=== PATIENT | female | born 1995 | race Caucasian/White ===

== ENCOUNTER 2017-02-17 13:27 | Inpatient (IN) | payer MEDICAID, OTHER ==
--- NOTE | 2017-02-17 13:57 | ED ---
General Adult HPI - General Chief complaint: Psychiatric Symptoms Stated complaint: mental health/petition Time Seen by Provider: 02/17/17 13:47 Source: patient, family, RN notes reviewed Mode of arrival: ambulatory Limitations: no limitations - History of Present Illness Initial comments: Patient 21-year-old female who presents emergency room today with her mother, the chief complaint of needing psychiatric evaluation. Patient was seen at [facility] just prior to arrival advised to come here to the emergency room for evaluation for suicidal ideation. Patient denies any suicidal ideation. Denies any homicidal ideation. Denies any visual or auditory hallucinations. Patient states these instances can all be explained. She states she was walking his [facility] and she tripped falling down into a parking space. She states people SHE was trying to be run over. Patient states that yesterday she was laying down on the train tracks. She states that "you know some people take self please like that". Patient also states that she was thinking about jumping into the [place]. She states that "everybody in [place] jumps at least once". Mother states that she cannot swim. I did asked patient if she was thinking of doing these things to herself. She states she did have half a swimming lesson. Patient denies complaints. Patient denies any recent fever, chills, shortness of breath, chest pain, back pain, abdominal pain, nausea or vomiting, numbness or tingling, dysuria or hematuria, constipation or diarrhea, headaches or visual changes, or any other complaints. - Related Data Home Medications Medication Instructions Recorded Confirmed ALPRAZolam [Xanax] 1 mg PO BID 02/17/17 02/17/17 Desvenlafaxine Succinate [Pristiq 50 mg PO DAILY 02/17/17 02/17/17 ER] [place] Carbonate 900 mg PO HS 02/17/17 02/17/17 Lurasidone HCl [Latuda] 20 mg PO DAILY 02/17/17 02/17/17 clonazePAM [KlonoPIN] 2 mg PO TID 02/17/17 02/17/17 Allergies Allergy/AdvReac Type Severity Reaction Status Date / Time lamotrigine [From Lamictal] Allergy Unknown Verified 02/17/17 13:49 Review of Systems ROS Statement: Those systems with pertinent positive or pertinent negative responses have been documented in the HPI. ROS Other: All systems not noted in ROS Statement are negative. Past Medical History Additional Past Medical History / Comment(s): Aspbergers Syndrome; Psyhosis. History of Any Multi-Drug Resistant Organisms: None Reported Past Surgical History: No Surgical Hx Reported Past Anesthesia/Blood Transfusion Reactions: No Reported Reaction Past Psychological History: Anxiety, Depression Smoking Status: Never smoker Past Alcohol Use History: None Reported Additional Past Alcohol Use History / Comment(s): Patient states that she is a nonsmoker. She denies any medical marijuana, marijuana, street drug use. She denies any alcohol use. Patient lives at home with her periods and is currently going to [facility]. She does not have any children. Past Drug Use History: None Reported - Past Family History Father Family Medical History: Cancer, CVA/TIA, Myocardial Infarction ([place]) Additional Family Medical History / Comment(s): Father is age 58 and has unknown breast tumor Mother Family Medical History: Diabetes Mellitus Additional Family Medical History / Comment(s): Mother is alive at age 56. Patient has 2 sisters that are well by no and blind. She does not have any brothers. General Exam - General Exam Comments Initial Comments: General: The patient is awake and alert, in no distress, and does not appear acutely ill. Eye: Pupils are equal, round and reactive to light, extra-ocular movements are intact. No nystagmus. There is normal conjunctiva bilaterally. No signs of icterus. Ears, nose, mouth and throat: There are moist mucous membranes and no oral lesions. Neck: The neck is supple, there is no tenderness or JVD. Cardiovascular: There is a regular rate and rhythm. No murmur, rub or gallop is appreciated. Respiratory: Lungs are clear to auscultation, respirations are non-labored, breath sounds are equal. No wheezes, stridor, rales, or rhonchi. Musculoskeletal: Normal ROM, no tenderness. Strength 5/5. Sensation intact. Pulses equal bilaterally 2+. Neurological: A&O x 3. CN II-XII intact, There are no obvious motor or sensory deficits. Coordination appears grossly intact. Speech is normal. Skin: Skin is warm and dry and no rashes or lesions are noted. Psychiatric: Cooperative. Limitations: no limitations Course Vital Signs 02/17/17 13:34 Temperature 98.2 F Pulse Rate 112 H Respiratory 20 Rate Blood Pressure 136/89 O2 Sat by Pulse 98 Oximetry Medical Decision Making - Medical Decision Making Patient is visiting here by mental health. They recommended admission to the hospital. Patient willing to sign herself in. - Lab Data Lab Results 02/17/17 Range/Units 14:00 Urine Opiates Screen Not Detected (NotDetected) Ur Oxycodone Screen Not Detected (NotDetected) Urine Methadone Screen Not Detected (NotDetected) Ur Propoxyphene Screen Not Detected (NotDetected) Ur Barbiturates Screen Not Detected (NotDetected) U Tricyclic Antidepress Not Detected (NotDetected) Ur Phencyclidine Scrn Not Detected (NotDetected) Ur Amphetamines Screen Not Detected (NotDetected) U Methamphetamines Scrn Not Detected (NotDetected) U Benzodiazepines Scrn Detected H (NotDetected) Urine Cocaine Screen Not Detected (NotDetected) U Marijuana (THC) Screen Not Detected (NotDetected) Disposition Clinical Impression: Suicidal ideation Disposition: TRANSFER TO PSYCH HOSP/UNIT Condition: Stable Time of Disposition: 16:00
[2017-02-17] MEDS ORDERED: MAGNESIUM HYDROXIDE 2,400 MG/10 ML CUP PO PRN (17:18)
[2017-02-17] MEDS ORDERED: MAG HYDROX/AL HYDROX/SIMETH 30 ML CUP PO PRN (17:18)
[2017-02-17] MEDS ORDERED: ACETAMINOPHEN TAB 325 MG TAB PO PRN (17:18)
[2017-02-17 18:15] VITALS: BMI 40.3
[2017-02-17] MEDS ORDERED: LURASIDONE 40 MG TAB PO SCH (18:30)
[2017-02-17] MEDS: LITHIUM CARBONATE 300 MG CAP PO SCH (21:34)
[2017-02-17] MEDS: clonazePAM 1 MG TAB PO SCH (21:34)
--- NOTE | 2017-02-18 08:24 | CONS ---
DATE OF CONSULTATION: 02/17/2017 REASON FOR CONSULTATION: Medical management requested by Dr. Valentin. CONSULTATION: This is a 21-year-old patient who follows with Dr. Ary Martins. The patient states she has a questionable history of Asperger syndrome in the past and possibly history of psychosis and depression. Patient has come into the ER. Patient was seen at the [facility] prior to arrival to the ER and sent for suicidal ideation. She states that she was trying to get herself run over and that yesterday she was lying down on the train tracks. She was also thinking of sometimes of jumping in the [place]. She tells me that she hates herself and she is worthless and dealing with psych issues all of her life. REVIEW OF SYSTEMS: CONSTITUTIONAL: None. HEENT: None. RESPIRATORY: None. CARDIOVASCULAR: None. GASTROINTESTINAL: None. GENITOURINARY: None. MUSCULOSKELETAL: None. DERMATOLOGICAL: None. HEMATOLOGICAL: None. LYMPHATIC: None. PSYCHIATRY: Depressed, does not sleep well. NEUROLOGICAL: None. PAST MEDICAL HISTORY: Questionable Asperger and psychosis, depression is present. PAST SURGICAL HISTORY: None. SOCIAL HISTORY: Nonsmoker. Denies any recreational drugs. Goes to [employer]. 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 Family history of stroke and heart attack. HOME MEDICATIONS: 1. Klonopin 1 mg p.o. t.i.d. 2. Latuda 200 mg p.o. daily. 3. [place] 900 mg q.h.s. 4. Pristiq ER 50 mg p.o. daily. 5. Xanax 1 mg p.o. b.i.d. 6. Possibly imipramine. ALLERGIES: LAMICTAL. On examination, temperature 98.2, pulse 112, respirations 18, blood pressure 136/89, pulse of 88% on room air. GENERAL APPEARANCE: Well built, BMI of 40.4. Sitting up, not in distress. EYES: Pupils equal, conjunctival normal. HEENT: External appearance of nose and ears normal. Oral cavity normal. NECK: JVD not raised. Mass not palpable. RESPIRATORY: Effort normal. Lungs are clear. CARDIOVASCULAR: First and second sounds on normal. No edema. ABDOMEN: Soft, nontender. Liver and spleen not palpable. LYMPHATIC: No lymph node palpable in neck or axilla. PSYCHIATRY: Alert and oriented x3. Mood and affect as above. INVESTIGATIONS: Urine drug screen positive for benzodiazepines. IMPRESSION: 1. Morbid obesity, body mass index of 40.4. 2. Chronic insomnia, idiopathic. 3. Psychotic disorder. Further evaluation per Psychiatry. PLAN: Patient should see a dietitian as an outpatient for weight loss measures. Patient can go on 1800 calorie diet right now. Patient is to follow with Dr. Martins up on discharge. Thank you, Dr. Valentin.
[2017-02-18] MEDS: DESVENLAFAXINE SUCCINATE 50 MG TAB.ER.24H PO SCH (08:38)
[2017-02-18] MEDS: clonazePAM 1 MG TAB PO SCH ×3 (08:38→21:35)
[2017-02-18 09:07] LABS: Basophils # (A) 0.1 k/uL (0-0.2); Basophils % (A) 1 %; CH 32.5; CHCM 35.1; Eosinophils # (A) 0.5 k/uL (0-0.7); Eosinophils % (A) 4 %; HDW 2.93; HGB 15.4 gm/dL (11.4-16.0); Luc # (Auto) 0.23; Luc % (Auto) 2; Lymphocytes # (A) 4.3 k/uL (1.0-4.8); Lymphocytes % (A) 31 %; MCH 31.8 pg (25.0-35.0); MCHC 34.2 g/dL (31.0-37.0); Mean Platelet Volume 6.5; Monocytes # (A) 0.4 k/uL (0-1.0); Monocytes % (A) 3 %; Neutrophils # (A) 8.2 k/uL (1.3-7.7); Neutrophils % (A) 60 %; RBC 4.83 m/uL (3.80-5.40); RDW 12.9 % (11.5-15.5); WBC 13.8 k/uL (4.0-11.0); WBC (Perox) 14.11
[2017-02-18 09:26] LABS: ALT 91 U/L (9-52); AST 48 U/L (14-36); Alkaline Phosphatase 76 U/L (38-126); Anion Gap 17 mmol/L; Blood Urea Nitrogen 9 mg/dL (7-17); Calcium 9.9 mg/dL (8.4-10.2); Carbon Dioxide 20 mmol/L (22-30); Chloride 105 mmol/L (98-107); Glucose 164 mg/dL (74-99); Non-African American GFR(MDRD) >60 (>60 ml/min/1.73 sqM); Potassium 4.1 mmol/L (3.5-5.1); Sodium 142 mmol/L (137-145); Total Bilirubin 0.8 mg/dL (0.2-1.3); Total Protein 7.4 g/dL (6.3-8.2)
--- NOTE | 2017-02-18 16:14 | P.HP ---
Psychiatric H&P - . H&P Date: 02/18/17 History & Physical: Allergies Allergy/AdvReac Type Severity Reaction Status Date / Time lamotrigine [From Lamictal] Allergy Unknown Verified 02/17/17 18:15 Vital Signs Temp 98.0 F 02/18/17 06:49 Pulse 100 02/18/17 06:49 Resp 18 02/18/17 06:49 BP 120/66 02/18/17 06:49 Pulse Ox 98 02/17/17 13:34 Intake & Output 02/17/17 02/18/17 02/18/17 18:59 06:59 18:59 Weight 113.398 kg Laboratory Last Values WBC 13.8 k/uL (4.0-11.0) H 02/18/17 08:45 RBC 4.83 m/uL (3.80-5.40) 02/18/17 08:45 Hgb 15.4 gm/dL (11.4-16.0) 02/18/17 08:45 Hct 45.0 % (34.0-46.0) 02/18/17 08:45 MCV 93.0 fL (80.0-100.0) 02/18/17 08:45 MCH 31.8 pg (25.0-35.0) 02/18/17 08:45 MCHC 34.2 g/dL (31.0-37.0) 02/18/17 08:45 RDW 12.9 % (11.5-15.5) 02/18/17 08:45 Plt Count 366 k/uL (150-450) 02/18/17 08:45 Neutrophils % 60 % 02/18/17 08:45 Lymphocytes % 31 % 02/18/17 08:45 Monocytes % 3 % 02/18/17 08:45 Eosinophils % 4 % 02/18/17 08:45 Basophils % 1 % 02/18/17 08:45 Neutrophils # 8.2 k/uL (1.3-7.7) H 02/18/17 08:45 Lymphocytes # 4.3 k/uL (1.0-4.8) 02/18/17 08:45 Monocytes # 0.4 k/uL (0-1.0) 02/18/17 08:45 Eosinophils # 0.5 k/uL (0-0.7) 02/18/17 08:45 Basophils # 0.1 k/uL (0-0.2) 02/18/17 08:45 Sodium 142 mmol/L (137-145) 02/18/17 08:45 Potassium 4.1 mmol/L (3.5-5.1) 02/18/17 08:45 Chloride 105 mmol/L (98-107) 02/18/17 08:45 Carbon Dioxide 20 mmol/L (22-30) L 02/18/17 08:45 Anion Gap 17 mmol/L 02/18/17 08:45 BUN 9 mg/dL (7-17) 02/18/17 08:45 Creatinine 0.81 mg/dL (0.52-1.04) 02/18/17 08:45 Est GFR (MDRD) Af Amer >60 (>60 ml/min/1.73 sqM) 02/18/17 08:45 Est GFR (MDRD) Non-Af >60 (>60 ml/min/1.73 sqM) 02/18/17 08:45 Glucose 164 mg/dL (74-99) H 02/18/17 08:45 Calcium 9.9 mg/dL (8.4-10.2) 02/18/17 08:45 Total Bilirubin 0.8 mg/dL (0.2-1.3) 02/18/17 08:45 AST 48 U/L (14-36) H 02/18/17 08:45 ALT 91 U/L (9-52) H 02/18/17 08:45 Alkaline Phosphatase 76 U/L (38-126) 02/18/17 08:45 Total Protein 7.4 g/dL (6.3-8.2) 02/18/17 08:45 Albumin 4.6 g/dL (3.5-5.0) 02/18/17 08:45 TSH 3.350 mIU/L (0.465-4.680) 02/18/17 08:45 Urine Opiates Screen Not Detected (NotDetected) 02/17/17 14:00 Ur Oxycodone Screen Not Detected (NotDetected) 02/17/17 14:00 Urine Methadone Screen Not Detected (NotDetected) 02/17/17 14:00 Ur Propoxyphene Screen Not Detected (NotDetected) 02/17/17 14:00 Ur Barbiturates Screen Not Detected (NotDetected) 02/17/17 14:00 U Tricyclic Antidepress Not Detected (NotDetected) 02/17/17 14:00 Ur Phencyclidine Scrn Not Detected (NotDetected) 02/17/17 14:00 Ur Amphetamines Screen Not Detected (NotDetected) 02/17/17 14:00 U Methamphetamines Scrn Not Detected (NotDetected) 02/17/17 14:00 U Benzodiazepines Scrn Detected (NotDetected) H 02/17/17 14:00 [place] 0.6 mmol/L 02/17/17 18:02 Urine Cocaine Screen Not Detected (NotDetected) 02/17/17 14:00 U Marijuana (THC) Screen Not Detected (NotDetected) 02/17/17 14:00 02/18/17 15:55 IDENTIFYING DATA: 21-year-old single female patient HPI: Patient admitted to the inpatient psychiatric unit at [facility] on a voluntary basis. Patient states that she had recent med changes and they put her on something at a higher dose that the last time she was on she had to be tied to her mom's ankle because she was suicidal. She makes reference to the Klonopin 1 mg 3 times a day she's been on for 2 weeks and Latuda is new she's been on for approximately 2 weeks. She relays that she had been on Klonopin in the past and was suicidal at that time but does not know if there is any correlation and relays that the Latuda is new for her. states that she was also been off her antidepressant as well and was trying to throw herself in the river the night before yesterday. She says she went to [facility] the next day and she got extremely anxious and sat in the parking lot. She says that they recommended admission and she was still having thoughts of suicide at that time. She states that if she was going to kill herself sitting in the parking lot probably wouldn't do it and if she wanted to she could gone on into the road. She does admit to being a worrier. She says she does feel she would be safe if she were released. She does make reference to them looking at ECT treatment for her. She states that she was weaned off her Pristiq but now has been placed back on it. She states that she also suffers from symptoms such as can't be around a electric wheelchair repairer because there might be a camera and it and covering up the vents. She says she has an overwhelming feeling of being watched all the time. She says this does not affect her way of life. She states that the medications she was on before were fine. She makes reference to the feeling that she hates herself. PAST PSYCHIATRIC HISTORY: She currently sees a counselor sharing at [facility] and nurse practitioner Christina. She denies any history of manic episodes. She does admit to history of depressive episodes. She does go to DBT groups. Her diagnosis has been bipolar depression she also talks of major depressive disorder with psychosis. She is also been diagnosed with Asperger's, OCD, ODD, and ADHD. She's had 2 prior hospitalizations. She has had suicide attempts one was an overdose. Says she's never had an issue with cutting behavior. Most recent medications were Klonopin, Latuda, she had been tapered off her Pristiq which has now been reinitiated, lithium carbonate and Xanax when necessary. PMH: Denies ALLERGIES: Lamotrigine MEDICATIONS: Tylenol when necessary, Maalox when necessary, Klonopin, Pristiq, lithium carbonate, Latuda, milk of magnesia when necessary CHEMICAL DEPENDENCY HISTORY: Denies FAMILY PSYCHIATRIC HISTORY: Grandma with paranoid schizophrenia," paranoid schizophrenia, multiple other family members with hospitalizations, dad with depression and was hospitalized, older sister with anxiety disorder FAMILY CHEMICAL DEPENDENCY HISTORY: Not known at this time SOCIAL HISTORY: Lives with her mom and dad and 2 sisters. She is single, never been , no children. She is a full-time student. She goes to [employer] and says her grades are not doing too well. MENTAL STATUS EXAM: She is alert and cooperative with the interview. She uses humor at times during the session. Her affect overall is restricted. Her mood is described as "sad." She denies any current thoughts of harm to self or others. She does describe some thoughts such as overwhelming feeling of being watched all the time. Cognitively she appears very grossly intact. I do not note any significant disorientation or memory disturbance. Her insight is adequate, judgment shows evidence of recent impairment. STRENGTHS/WEAKNESSES: Strengths-Support system; weaknesses -coping skills INTELLECTUAL FUNCTIONING: Average IMPRESSIONS: AXIS I : Major depressive disorder, recurrent with history of psychosis-type symptoms; rule out bipolar disorder depressed with psychosis; rule out schizoaffective disorder, depressive versus bipolar type. History of diagnoses of Asperger's, OCD, ODD and ADHD. AXIS II: Deferred AXIS III: Nonsignificant AXIS IV: Nonsignificant voiced AXIS V: 30 PLAN: [facility] on a voluntary basis. She'll be placed on SP 15 minute precautions. Baseline laboratory workup will be done the patient and medical consultation will be ordered. [place] level was noted to be 0.6. We will maintain lithium as is at this time. We'll titrate Latuda to 40 mg daily to help further with him mood as well as any paranoid thoughts and could also give further benefit regarding any OCD symptoms. We will maintain Pristiq which has been reinitiated as her antidepressant 50 mg daily. Klonopin will be maintained for her anxiety as current. Dr. Valentin will initiate care this patient starting Monday, will continue to cover this patient over the weekend. We will look into any family supports. Also look at the possibility of linking with Center such as [facility] if ECT treatment is being pursued. Estimated length of stay is 3-5 days. Prognosis is guarded.
[2017-02-18] MEDS: LITHIUM CARBONATE 300 MG CAP PO SCH (21:35)
[2017-02-19] MEDS: DESVENLAFAXINE SUCCINATE 50 MG TAB.ER.24H PO SCH (08:31)
[2017-02-19] MEDS: LURASIDONE 40 MG TAB PO SCH (08:31)
[2017-02-19] MEDS: clonazePAM 1 MG TAB PO SCH ×2 (08:31→16:04)
--- NOTE | 2017-02-19 17:07 | P.PN ---
Progress Note - Text Interval history: Patient seen in cross coverage today in for Dr. Valentin. She reports that her mood is doing better overall today. She does feel tiredness but feels like she is tolerating the psychotropic medications well overall. She relays that she hasn't been having panic attacks which is typical for her to have multiple per day. She is having a visit with her family tonight. Mental status exam: She is alert and cooperative with the interview. Her speech is fluent not rapid or pressured. Thought processes organized. Her mood overall appears to be better. She denies any thoughts of harm to self or others. No evidence of psychosis or agitation. Plan: We'll maintain current psychotropic medication regimen. We'll monitor for any medication side effects. Dr. Valentin to initiate care this patient starting tomorrow. We will look into family support meeting.
[2017-02-19] MEDS: LITHIUM CARBONATE 300 MG CAP PO SCH (20:23)
[2017-02-20] MEDS: clonazePAM 1 MG TAB PO SCH ×4 (02:52→20:21)
[2017-02-20] MEDS: DESVENLAFAXINE SUCCINATE 50 MG TAB.ER.24H PO SCH (09:31)
[2017-02-20] MEDS: LURASIDONE 40 MG TAB PO SCH (09:31)
--- NOTE | 2017-02-20 14:40 | P.PN ---
Progress Note - Text SUBJECTIVE: I reviewed the medical record, interviewed Ms. Toledo and discussed her treatment and treatment plan during team meeting. She presented to unit with increasing suicidal ideation. According to information from [facility] she has history of recurrent depressive disorder and a borderline personality disorder. She alleged that she became distressed and developed thoughts of suicide after outpatient psychiatrist tapered then discontinue her antidepressant. Since she restarted the medication, Pristiq, she feels less distressed and is no longer having thoughts of suicide. She feels depressed but denied thoughts of or suicide. She denied having thoughts of harm towards others. She denied psychotic symptoms such as auditory or visual hallucinations, ideas reference, thought insertion, thought broadcasting or thought control. She denied the use of alcohol or drugs (her UDS was positive only for benzodiazepine). She alleges been compliant with all medications. Her serum lithium level was 0.6. OBJECTIVE: She presented as a slightly disheveled appearing obese 21-year-old female who was pleasant on approach. She maintained eye contact and attended to the interview. She had no distinguishing features or prominent physical abnormalities. She had a blunted but bright facial expression. She was alert and oriented to person, place and time. She showed no abnormality of psychomotor activity. She had no abnormal involuntary movements. Her speech was spontaneous with normal rate, rhythm and volume. Affect was blunted but stable and appropriate. She denied suicidal ideation or wishes. She denied homicidal ideation. She denied depressive cognitions such as hopelessness, helplessness or worthlessness. She has not expressed obsessions, ruminations, phobias, ideas reference or paranoid ideation. Her thinking was abstract and her associations were coherent and logical. She denied hallucinations and did not appear to be responding to internal stimuli. ASSESSMENT: She is a young woman with a recurrent depressive disorder and borderline personality disorder. She presented with suicidal ideation that has apparently resolved since admission. Her subjective report of depression is not consistent with her clinical presentation. PLAN: Continue inpatient psychiatric hospitalization. Continue suicide precautions with 15 minute checks. Continue current medications: Clonazepam 1 mg 3 times a day, Pristiq ER 50 mg daily, lithium carbonate 900 mg at bedtime and Latuda 400 mg daily. Obtain collateral information from family. Encourage participation in therapeutic groups and activities. Evaluate clinical status response to treatment on a daily basis.
[2017-02-20 16:14] VITALS: RESP 18
[2017-02-20] MEDS: LITHIUM CARBONATE 300 MG CAP PO SCH (20:20)
[2017-02-21 06:30] VITALS: BP 142/65; PULSE 92; TEMP 98.3
[2017-02-21] MEDS: clonazePAM 1 MG TAB PO SCH (08:15)
[2017-02-21] MEDS: DESVENLAFAXINE SUCCINATE 50 MG TAB.ER.24H PO SCH (08:15)
[2017-02-21] MEDS: LURASIDONE 40 MG TAB PO SCH (08:15)
--- NOTE | 2017-02-21 09:22 | P.DS ---
Providers Date of admission: 02/17/17 16:02 Attending physician: Lalo Valentin MD Consults: 02/17/17 17:18 Consult Physician Routine Consulting Provider: Clyde Chappell Consult Reason/Comments: H and P and medical management. Do you want consulting provider notified?: Yes Primary care physician: Ary Martins - Discharge Diagnosis(es) (1) Major depressive disorder, recurrent Current Visit: Yes Status: Chronic Priority: Medium (2) Borderline personality disorder Current Visit: Yes Status: Chronic Priority: High (3) Suicidal ideation Current Visit: Yes Status: Resolved Priority: Medium Hospital Course: Miss Rodriguez is a 21-year-old single female admitted voluntarily to the psychiatric unit with complaints of increased anxiety and suicidal ideation. She has a history of a major depressive disorder and a borderline personality disorder. She is enrolled with [facility] and attends their DBT groups. She attributed to increased anxiety changes in behavior to a recent medication change. Please see Dr. Cooley's history and physical dated 02/18/2017. We admitted her to the psychiatric unit under the care of this teletypewriter installer. We provided a bile psychosocial assessment. The customer service sales consultant plant operator completed the initial physical exam and medical history diagnosis morbid obesity (BMI of 40.4) and chronic insomnia. Her UDS was positive for benzodiazepines only. Her serum lithium level was 0.6. We resumed her outpatient medications including clonazepam 1 mg 3 times a day, Pristiq ER 50 mg daily and lithium carbonate 900 mg at bedtime. We increased her Latuda from 20 mg to 40 mg daily for the treatment of depression and emotional dyscontrol. Her emotional lability, anxiety and depression diminished after admission. She repeatedly denied suicidal intent or plan. She attributed the change of her emotions and behavior to the recent indication change. She participated in therapeutic groups and activities. She posed no management problem from an demonstrated no behavioral dyscontrol. The executive secretary social welfare had frequent contact with her mother. Her brother also reported a marked change in behavior and a decrease in emotional lability. At time of discharge denied thoughts of or suicide. She plans to continue with treatment through community mental health including attendance to DBT groups. Patient Condition at Discharge: Stable Plan - Discharge Summary New Discharge Prescriptions: Lurasidone [Latuda] 40 mg PO W/BRKFST 30 Days Discharge Medication List Desvenlafaxine Succinate [Pristiq ER] 50 mg PO DAILY 02/17/17 [History] [place] Carbonate 900 mg PO HS 02/17/17 [History] clonazePAM [KlonoPIN] 1 mg PO TID 02/17/17 [History] Lurasidone [Latuda] 40 mg PO W/BRKFST 30 Days 02/21/17 [Rx] Follow up Appointment(s)/Referral(s): [facility] [Outside] - 02/21/17 3:15 pm (02/21/17 at 3:15 w/ Nivia Hamilton 02/22/17 at 10:30 w/ Christina Kennedy) Ary Martins DO [Primary Care Provider] - 1-2 days (Inquire about referral for sleep study) Patient Instructions/Handouts: Depression (DC), Suicide Prevention for Adults ( DC), Anxiety (GEN) Activity/Diet/Wound Care/Special Instructions: Activity and diet as tolerated. Avoid the use of street drugs and alcohol. Take all medications as prescribed. When you are in need of refills on your medications please contact your medical doctor and/or outpatient psychiatrist to have this done. Please go to scheduled outpatient appointment for aftercare. If symptoms return or become worse call the crisis line at and/ or go to the nearest emergency room for an evaluation. Discharge Disposition: HOME SELF-CARE
== END 2017-02-21 11:49 | disposition home or self-care (01) | DRG 885 ==
LOC: EC 13:27 → 3MHU 16:02
PROVIDERS: ADMIT Psychiatry & Neurology Psychiatry; ATTEND Psychiatry & Neurology Psychiatry
DX: F33.9 Major depressive disorder, recurrent, unspecified (principal); R45.851 Suicidal ideations; Z68.41 Body mass index [BMI] 40.0-44.9, adult; E66.01 Morbid (severe) obesity due to excess calories; F41.9 Anxiety disorder, unspecified; F42.9 Obsessive-compulsive disorder, unspecified; F51.04 Psychophysiologic insomnia; F60.3 Borderline personality disorder; F84.5 Asperger's syndrome; F90.9 Attention-deficit hyperactivity disorder, unspecified type; Z81.8 Family history of other mental and behavioral disorders; Z82.49 Family history of ischemic heart disease and other diseases of the circulatory system; Z79.899 Other long term (current) drug therapy
CPT/HCPCS: 80053; 80178; 80306; 82075; 84443; 85025; 99285

== ENCOUNTER → 2017-05-23 | Outpatient (CLI) | payer OTHER ==
--- NOTE | 2017-05-23 21:44 | CONS ---
DATE OF SERVICE: 05/23/2017 REASON FOR EVALUATION: Sleep apnea. This 22-year-old female patient has excessively been sleepy. She is sleeping all day, and despite that she remains quite drowsy and sleepy during awake hours. She goes to bed between 2 and 3 a.m. and she wake up sometimes at 9 a.m. , and sometimes she sleeps up to noon time. Despite all these sleeping hours, she is very drowsy and sleepy during the day. Note that she has an extensive psychiatric history with a previous history of severe depression, bipolar disorder and anxiety. She has been under the care of Dr. Fagan and she has been hospitalized for major depression. Currently she is on a combination of lithium , Pristiq and Klonopin. Based on her ongoing sleepiness, she was started on Ritalin 20 mg p.o. twice a day, and despite that she is still feeling sleepy. She saw some benefit from the Ritalin; however, the benefit was not great. Her mother feels that she snores loudly, she stops breathing, she is waking up occasionally choking and gasping for air. She wakes up with a dry mouth. She talks in her sleep. She is quite anxious, as mentioned, and she has a history of severe depression. She is tired and sleepy throughout the day and she falls asleep at any time if she is given the opportunity to do so. No history of any motor vehicle accidents because of feeling sleepy or drowsy. No sleep paralysis. No hallucinations. No cataplexy. The patient has been gaining weight ; she has gained around ( ) pounds over the past one year. She takes at least 2 naps during the day. She prefers primarily to sleep on her side. PAST MEDICAL HISTORY: 1. Major depression. 2. Anxiety/bipolar disorder. 3. Obesity. PAST SURGICAL HISTORY: Negative. DRUG ALLERGIES: NOT KNOWN. Outpatient medication list includes: 1. [place]. 2. Pristiq. 3. Klonopin. 4. Ritalin. 5. Xanax. SOCIAL HISTORY: The patient is a non-smoker. No history of alcoholism. No history of IV drugs. No substance abuse. FAMILY HISTORY: Her father has obstructive sleep apnea. Her other siblings are albino. REVIEW OF SYSTEMS: Twelve-point review of systems was done. Positive findings were all mentioned above in the history of present illness. No history of any grinding of the teeth. No palpitations. No heartburn. No history of any insomnia. No difficulties with memory. No restlessness in the lower extremities. BP is 114/72, pulse 88, respiration 12, temperature 97.7. Saturation 97% on room air. Weight is 283. Height is 66 inches. Neck size 18-1/2. [place] score is 18. BMI is 44.9. GENERAL APPEARANCE: Calm, comfortable. HEENT: Short neck. Crowding of posterior pharynx. Mallampati class IV. Bilateral tonsillar enlargement. LUNGS: Clear to auscultation. Heart sounds are regular rate and rhythm. Normal S1, S2. No S3. No S4. No murmurs. ABDOMEN: Soft, non-tender. No organomegaly. EXTREMITIES: No edema. No cyanosis or clubbing. IMPRESSION: 1. Obstructive sleep apnea clinically suspected; in fact, there is a high suspicion for BETTY based on the reported history of snoring, witnessed apneas and excessive hypersomnia and sleepiness with an [place] score of 18. In addition, the patient has a Mallampati class IV. 2. Obesity; body mass index of 44.9. 3. Major depression. 4. Anxiety. 5. Bipolar disorder. PLAN: 1. Encourage weight loss. 2. Continue the same medication. 3. Continue Ritalin. 4. Proceed with a screening polysomnogram to assess the presence of obstructive sleep apnea and treat accordingly. VIKTORIA
== END | disposition home or self-care (01) ==
LOC: SLEEP 15:02
PROVIDERS: ATTEND Internal Medicine Critical Care Medicine
DX: F32.9 Major depressive disorder, single episode, unspecified (principal); E66.9 Obesity, unspecified; F41.9 Anxiety disorder, unspecified
CPT/HCPCS: 99211

== ENCOUNTER 2017-07-16 18:28 | Emergency (ER) | payer OTHER ==
[2017-07-16 18:36] VITALS: RESP 18
--- NOTE | 2017-07-16 19:07 | ED ---
Psych HPI - General Chief Complaint: Psychiatric Symptoms Stated Complaint: mental health Time Seen by Provider: 07/16/17 18:42 Source: patient, family, RN notes reviewed Mode of arrival: ambulatory Limitations: no limitations - History of Present Illness Initial Comments: This a 22-year-old female presents emergency Department with chief complaint of depression. Patient states that earlier today she made threats [place] him to kill herself. She states that she was angry and argumentative. Patient states that she is much better at this time states that she does not feel that she wants to harm herself. She denies suicidal or homicidal ideation. Patient states that she has extensive outpatient therapy but patient left house so mother called the police as she told her that she would. They did advise her to come emergency department for evaluation. - Related Data Home Medications Medication Instructions Recorded Confirmed Desvenlafaxine Succinate [Pristiq 50 mg PO HS 02/17/17 07/16/17 ER] [place] Carbonate 900 mg PO HS 02/17/17 07/16/17 ALPRAZolam [Xanax] 1 mg PO DAILY PRN 07/16/17 07/16/17 Lurasidone [Latuda] 80 mg PO DAILY 07/16/17 07/16/17 Methylphenidate HCl [Ritalin] 5 mg PO DAILY PRN 07/16/17 07/16/17 clonazePAM [KlonoPIN] 1 mg PO DAILY 07/16/17 07/16/17 clonazePAM [KlonoPIN] 2 mg PO HS 07/16/17 07/16/17 Allergies Allergy/AdvReac Type Severity Reaction Status Date / Time lamotrigine [From Lamictal] Allergy Unknown Verified 07/16/17 19:08 Review of Systems ROS Statement: Those systems with pertinent positive or pertinent negative responses have been documented in the HPI. ROS Other: All systems not noted in ROS Statement are negative. Past Medical History Past Medical History: No Reported History Additional Past Medical History / Comment(s): Asbergers Syndrome; sleep apnea History of Any Multi-Drug Resistant Organisms: None Reported Past Surgical History: No Surgical Hx Reported Past Anesthesia/Blood Transfusion Reactions: No Reported Reaction Past Psychological History: ADD/ADHD, Anxiety, Bipolar, Depression Smoking Status: Never smoker Past Alcohol Use History: None Reported Past Drug Use History: None Reported - Past Family History Father Family Medical History: Cancer, CVA/TIA, Myocardial Infarction ([place]) Additional Family Medical History / Comment(s): Father is age 58 and has unknown breast tumor Mother Family Medical History: Diabetes Mellitus Additional Family Medical History / Comment(s): Mother is alive at age 56. Patient has 2 sisters that are well by no and blind. She does not have any brothers. General Exam Limitations: no limitations General appearance: alert, in no apparent distress Head exam: Present: atraumatic, normocephalic, normal inspection Eye exam: Present: normal appearance, PERRL, EOMI. Absent: scleral icterus, conjunctival injection, periorbital swelling ENT exam: Present: normal exam, normal oropharynx, mucous membranes moist, TM's normal bilaterally, normal external ear exam Neck exam: Present: normal inspection, full ROM. Absent: tenderness, meningismus, lymphadenopathy Respiratory exam: Present: normal lung sounds bilaterally. Absent: respiratory distress, wheezes, rales, rhonchi, stridor Cardiovascular Exam: Present: regular rate, normal rhythm, normal heart sounds. Absent: systolic murmur, diastolic murmur, rubs, gallop, clicks Neurological exam: Present: alert, oriented X3, CN II-XII intact Psychiatric exam: Present: depressed Skin exam: Present: warm, dry, intact, normal color. Absent: rash Course Vital Signs 07/16/17 18:29 Temperature 98.1 F Pulse Rate 106 H Respiratory 18 Rate Blood Pressure 113/77 O2 Sat by Pulse 94 L Oximetry Medical Decision Making - Medical Decision Making 22-year-old female presented for psychiatric evaluation depression. Patient was evaluated by [facility] and recommends discharge after discussion with psychiatrist. Patient has extensive outpatient therapy. Patient is not suicidal. Disposition Clinical Impression: Depression Disposition: HOME SELF-CARE Condition: Stable Instructions: Depression (ED) Additional Instructions: Please return to the Emergency Department if symptoms worsen or any other concerns. Referrals: Ary Martins DO [Primary Care Provider] - 1-2 days Time of Disposition: 21:05
[2017-07-16 21:34] VITALS: BP 117/76; PULSE 98; TEMP 98
== END 2017-07-16 21:32 | disposition home or self-care (01) ==
LOC: EC 18:28
DX: F32.9 Major depressive disorder, single episode, unspecified (principal); R45.4 Irritability and anger; F31.9 Bipolar disorder, unspecified; F41.9 Anxiety disorder, unspecified; F90.9 Attention-deficit hyperactivity disorder, unspecified type; Z79.899 Other long term (current) drug therapy; Z88.8 Allergy status to other drugs, medicaments and biological substances
CPT/HCPCS: 82075; 99284

== ENCOUNTER 2019-06-03 20:16 | Emergency (ER) | payer OTHER ==
[2019-06-03] MEDS ORDERED: DICYCLOMINE 20 MG TAB PO STA (22:30)
[2019-06-03] MEDS ORDERED: MORPHINE SULFATE 4 MG/ML SYRINGE IVP STA (22:31)
[2019-06-03 23:01] LABS: HCT 42.7 % (34.0-46.0); HGB 14.4 gm/dL (11.4-16.0); MCH 30.7 pg (25.0-35.0); MCHC 33.7 g/dL (31.0-37.0); Mean Platelet Volume 6.4; Platelet Count 368 k/uL (150-450); RBC 4.69 m/uL (3.80-5.40); RDW 12.8 % (11.5-15.5); WBC 11.8 k/uL (3.8-10.6)
[2019-06-03 23:16] LABS: ALT 38 U/L (9-52); AST 41 U/L (14-36); African American GFR (CKD) >90 (>60 ml/min/1.73 sqM); Albumin 4.3 g/dL (3.5-5.0); Alkaline Phosphatase 51 U/L (38-126); Anion Gap 8 mmol/L; Blood Urea Nitrogen 6 mg/dL (7-17); Calcium 9.5 mg/dL (8.4-10.2); Carbon Dioxide 24 mmol/L (22-30); Chloride 108 mmol/L (98-107); Glucose 76 mg/dL (74-99); Lithium 1.4 mmol/L; Potassium 4.3 mmol/L (3.5-5.1); Sodium 140 mmol/L (137-145); Total Bilirubin 0.3 mg/dL (0.2-1.3); Total Protein 6.7 g/dL (6.3-8.2)
--- NOTE | 2019-06-03 23:21 | XR ---
EXAM: XR Abdomen, 1 View CLINICAL HISTORY: Pain TECHNIQUE: Frontal supine view of the abdomen/pelvis. COMPARISON: No relevant prior studies available. FINDINGS: Intraperitoneal space: No pneumatosis or pneumoperitoneum. Gastrointestinal tract: Gas and stool are seen in the nondilated colon. Paucity of bowel gas in the central abdomen. Bones/joints: No acute fracture or malalignment. IMPRESSION: 1. Gas and stool are seen in the nondilated colon. 2. No pneumatosis or pneumoperitoneum.
[2019-06-03 23:28] LABS: Appearance,Urine Clear (Clear); Bacteria,Urine Rare /hpf; Bilirubin,Urine Negative (Negative); Blood,Urine Negative (Negative); Color,Urine Yellow; Glucose,Urine (UA) Negative (Negative); Ketones,Urine Trace (Negative); Leukocyte Esterase,Urine Small (Negative); Mucus,Urine Rare /hpf; Nitrite,Urine Negative (Negative); Protein,Urine Trace (Negative); RBC,Urine 1 /hpf (0-5); Specific Gravity,Urine 1.021 (1.001-1.035); Squamous Epithelial Cell,Urine 6 /hpf (0-4); WBC,Urine 5 /hpf (0-5)
--- NOTE | 2019-06-03 23:53 | ED ---
Female Urogenital HPI - General Chief complaint: Urogenital Stated complaint: Abd Pain, Urogenital Time Seen by Provider: 06/03/19 21:46 Source: family Mode of arrival: ambulatory Limitations: no limitations - History of Present Illness Initial comments: Issues 24-year-old female presenting to emergency Department with abdominal pain. Patient reports a history of abdominal uterine bleeding and dysmenorrhea that is currently being treated by lens edge grinder machine with oral contraceptives. Patient is being evaluated by her lens edge grinder machine for endometriosis. Patient had an ultrasound recently and is waiting for a follow-up tomorrow morning with her lens edge grinder machine. Patient reports irregular periods and is typical bleeding twice a month. Patient reports the abdominal pain is located on the left and right suprapubic region. Patient reports the pain is cramping in character, and comes and goes. Patient reports the pain is very similar to her previous bouts with dysmenorrhea but this time she could not handle the pain. Patient denies nausea, vomiting or diarrhea. Patient denies fever, chest pain, chest tightness, shortness of breath or headache. Patient is not sexually active and has no concerns for STDs. Patient denies increased urgency, frequency or dysuria. Patient denies any vaginal discharge or foul odor. Patient takes lithium and her mother was requesting to have her levels checked. - Related Data Home Medications Medication Instructions Recorded Confirmed [place] Carbonate 300 mg PO HS 02/17/17 06/03/19 [place] 1 tab PO DAILY 06/03/19 06/03/19 [place] Carbonate 1,200 mg PO HS 06/03/19 06/03/19 QUEtiapine [SEROquel] 25 mg PO HS 06/03/19 06/03/19 Venlafaxine HCl [Effexor XR] 300 mg PO DAILY 06/03/19 06/03/19 hydrOXYzine PAMOATE 25 mg PO BID PRN 06/03/19 06/03/19 Previous Rx's Medication Instructions Recorded Dicyclomine [Bentyl] 10 mg PO TID #20 capsule 06/03/19 Allergies Allergy/AdvReac Type Severity Reaction Status Date / Time lamotrigine [From Lamictal] Allergy Unknown Verified 06/03/19 21:41 Review of Systems ROS Statement: Those systems with pertinent positive or pertinent negative responses have been documented in the HPI. ROS Other: All systems not noted in ROS Statement are negative. Past Medical History Past Medical History: No Reported History Additional Past Medical History / Comment(s): Asbergers Syndrome; sleep apnea History of Any Multi-Drug Resistant Organisms: None Reported Past Surgical History: No Surgical Hx Reported Past Anesthesia/Blood Transfusion Reactions: No Reported Reaction Past Psychological History: ADD/ADHD, Anxiety, Depression, PTSD Smoking Status: Never smoker Past Alcohol Use History: None Reported Past Drug Use History: None Reported - Past Family History Father Family Medical History: Cancer, CVA/TIA, Myocardial Infarction ([place]) Additional Family Medical History / Comment(s): Father is age 58 and has unknown breast tumor Mother Family Medical History: Diabetes Mellitus Additional Family Medical History / Comment(s): Mother is alive at age 56. Patient has 2 sisters that are well by no and blind. She does not have any brothers. General Exam Limitations: no limitations General appearance: alert, in no apparent distress, obese Head exam: Present: atraumatic, normocephalic, normal inspection Eye exam: Present: normal appearance, PERRL, EOMI Pupils: Present: normal accommodation ENT exam: Present: normal exam, mucous membranes moist, normal external ear exam Neck exam: Present: normal inspection, full ROM Respiratory exam: Present: normal lung sounds bilaterally. Absent: wheezes Cardiovascular Exam: Present: regular rate, normal rhythm, normal heart sounds GI/Abdominal exam: Present: soft, normal bowel sounds, other (Negative Moncada sign, negative McBurney point tenderness, negative bench shear operator sign, negative rebound tenderness, negative Rovsing.). Absent: tenderness, guarding, rebound Extremities exam: Present: normal inspection, full ROM Back exam: Present: normal inspection, full ROM. Absent: tenderness, CVA tenderness (R), CVA tenderness (L) Neurological exam: Present: alert, oriented X3 Psychiatric exam: Present: normal affect, normal mood Skin exam: Present: warm, intact, normal color Course Vital Signs 06/03/19 06/04/19 20:33 00:10 Temperature 98.5 F 97.8 F Pulse Rate 105 H 87 Respiratory 20 18 Rate Blood Pressure 112/78 118/83 O2 Sat by Pulse 95 99 Oximetry Medical Decision Making - Medical Decision Making Patient is a 24-year-old female presenting to emergency Department with abdominal pain. CBC indicates a mild elevation in white blood cells otherwise unremarkable. CMP is unremarkable. UA is negative for UTI. KUB is unremarkable. Patient was given fluids, and Bentyl. Patient was offered morphine but she declined. A reevaluation patient reports her abdominal pain is less than a 5. Patient declined a pelvic exam and states that she will seek further management from her lens edge grinder machine in the morning. Patient will be discharged with Bentyl. Patient advised to attend her appointment in the morning. Strict return parameters were thoroughly discussed with patient and mother who are understanding and agreeable. Case discussed with physician. - Lab Data Result diagrams: 06/03/19 22:50 06/03/19 22:50 Lab Results 06/03/19 06/03/19 06/03/19 Range/Units 22:50 22:50 22:50 WBC 11.8 H (3.8-10.6) k/uL RBC 4.69 (3.80-5.40) m/uL Hgb 14.4 (11.4-16.0) gm/dL Hct 42.7 (34.0-46.0) % MCV 91.0 (80.0-100.0) fL MCH 30.7 (25.0-35.0) pg MCHC 33.7 (31.0-37.0) g/dL RDW 12.8 (11.5-15.5) % Plt Count 368 (150-450) k/uL Sodium 140 (137-145) mmol/L Potassium 4.3 (3.5-5.1) mmol/L Chloride 108 H (98-107) mmol/L Carbon Dioxide 24 (22-30) mmol/L Anion Gap 8 mmol/L BUN 6 L (7-17) mg/dL Creatinine 0.73 (0.52-1.04) mg/dL Est GFR (CKD-EPI)AfAm >90 (>60 ml/min/1.73 sqM) Est GFR (CKD-EPI)NonAf >90 (>60 ml/min/1.73 sqM) Glucose 76 (74-99) mg/dL Calcium 9.5 (8.4-10.2) mg/dL Total Bilirubin 0.3 (0.2-1.3) mg/dL AST 41 H (14-36) U/L ALT 38 (9-52) U/L Alkaline Phosphatase 51 (38-126) U/L Total Protein 6.7 (6.3-8.2) g/dL Albumin 4.3 (3.5-5.0) g/dL Urine Color Yellow Urine Appearance Clear (Clear) Urine pH 7.0 (5.0-8.0) Ur Specific [place] 1.021 (1.001-1.035) Urine Protein Trace H (Negative) Urine Glucose (UA) Negative (Negative) Urine Ketones Trace H (Negative) Urine Blood Negative (Negative) Urine Nitrite Negative (Negative) Urine Bilirubin Negative (Negative) Urine Urobilinogen 4.0 (<2.0) mg/dL Ur Leukocyte Esterase Small H (Negative) Urine RBC 1 (0-5) /hpf Urine WBC 5 (0-5) /hpf Ur Squamous Epith Cells 6 H (0-4) /hpf Urine Bacteria Rare H (None) /hpf Urine Mucus Rare H (None) /hpf [place] 1.4 mmol/L Disposition Clinical Impression: Abdominal pain Disposition: HOME SELF-CARE Condition: Stable Instructions (If sedation given, give patient instructions): Abdominal Pain (ED) Additional Instructions: Please take prescribed medication as directed. Please follow with a lens edge grinder machine. Please return to emergency department if symptoms worsen. Prescriptions: Dicyclomine [Bentyl] 10 mg PO TID #20 capsule Is patient prescribed a controlled substance at d/c from ED?: No Referrals: Ary Martins DO [Primary Care Provider] - 1-2 days Time of Disposition: 23:53
[2019-06-04 00:11] VITALS: BP 118/83; PULSE 87; RESP 18; TEMP 97.8
== END 2019-06-04 00:11 | disposition home or self-care (01) ==
LOC: EC 20:16
DX: R10.9 Unspecified abdominal pain (principal); F41.9 Anxiety disorder, unspecified; F32.9 Major depressive disorder, single episode, unspecified; Z79.3 Long term (current) use of hormonal contraceptives; Z79.899 Other long term (current) drug therapy; Z88.8 Allergy status to other drugs, medicaments and biological substances
CPT/HCPCS: 36415; 74018; 80053; 80178; 81001; 85027; 99284

== ENCOUNTER 2021-09-02 16:35 | Emergency (ER) | payer MEDICARE, OTHER ==
[2021-09-02 16:56] VITALS: BP 115/84; PULSE 91; RESP 18; TEMP 98.9
--- NOTE | 2021-09-02 17:09 | ED ---
General Adult HPI - General Chief complaint: Psychiatric Symptoms Stated complaint: Mental Health Time Seen by Provider: 09/02/21 16:46 Source: EMS Mode of arrival: EMS Limitations: no limitations - History of Present Illness Initial comments: Dictation was produced using [employer] dictation software. please excuse any grammatical, word or spelling errors. Chief Complaint: 26-year-old female brought in EMS for valuation of suicidal att empt History of Present Illness: Patient is a 26-year-old female she took 3 pills of Flexeril. EMS was called for possible suicidal attempt by patient's family member. Patient denies any medical issues at this time. She took those medicines as an impulse. Those medications belong to her mother. She does not know the dosage. Patient denies any suicidal ideation. She denies any homicidal ideation. No visual or auditory hallucinations. Patient has been admitted to inpatient psychiatry in the past. The ROS documented in this emergency department record has been reviewed and confirmed by me. Those systems with pertinent positive or negative responses have been documented in the HPI. All other systems are other negative and/or noncontributory. PHYSICAL EXAM: General Impression: Alert and oriented x3, not in acute distress HEENT: Normocephalic atraumatic, extra-ocular movements intact, pupils equal and reactive to light bilaterally, mucous membranes moist. Cardiovascular: Heart regular rate and rhythm Chest: Able to complete full sentences, no retractions, no tachypnea Musculoskeletal: Pulses present and equal in all extremities, no peripheral edema Motor: no focal deficits noted Neurological: CN II-XII grossly intact, no focal motor or sensory deficits noted Skin: Intact with no visualized rashes Psych: Normal affect and mood ED course: 26-year-old well-appearing feel presents to the emergency department for evaluation of medication overdose as a suicidal attempt. As upon arrival are within acceptable limits. Patient took 3 tabs of her mother's prescription Flexeril. Evaluation obtained. Laboratory evaluation is unremarkable. Tox labs negative. Patient observed in the emergency department for approximately 4 hours found to be stable medical condition. She was evaluated by emergency sex services. She is stable for discharge with safety plan. He continues to deny suicidal ideation. States that it was an impulsive action she regrets. - Related Data Home Medications Medication Instructions Recorded Confirmed [place] Carbonate 1,200 mg PO HS 06/03/19 09/02/21 Venlafaxine HCl [Effexor XR] 150 mg PO DAILY 06/03/19 09/02/21 Medroxyprogesterone Acetate 150 mg IM Q84D 09/02/21 09/02/21 [Depo-Provera] Spravato 84mg 3 spray NASAL DIRECTED 09/02/21 09/02/21 Topiramate [Topamax] 100 mg PO BID 09/02/21 09/02/21 Venlafaxine HCl [Effexor XR] 75 mg PO DAILY 09/02/21 09/02/21 hydrOXYzine pamoate [Vistaril] 50 mg PO TID PRN 09/02/21 09/02/21 Allergies Allergy/AdvReac Type Severity Reaction Status Date / Time lamotrigine [From Lamictal] Allergy Unknown Verified 09/02/21 17:30 Review of Systems ROS Statement: Those systems with pertinent positive or pertinent negative responses have been documented in the HPI. ROS Other: All systems not noted in ROS Statement are negative. Past Medical History Past Medical History: No Reported History Additional Past Medical History / Comment(s): Asbergers Syndrome; sleep apnea History of Any Multi-Drug Resistant Organisms: None Reported Past Surgical History: No Surgical Hx Reported Past Anesthesia/Blood Transfusion Reactions: No Reported Reaction Past Psychological History: Anxiety, Depression, PTSD Smoking Status: Never smoker Past Alcohol Use History: None Reported Past Drug Use History: None Reported - Past Family History Father Family Medical History: Cancer, CVA/TIA, Myocardial Infarction ([place]) Additional Family Medical History / Comment(s): Father is age 58 and has unknown breast tumor Mother Family Medical History: Diabetes Mellitus Additional Family Medical History / Comment(s): Mother is alive at age 56. Patient has 2 sisters that are well by no and blind. She does not have any brothers. General Exam Limitations: no limitations Course Vital Signs 09/02/21 16:38 Temperature 98.9 F Pulse Rate 91 Respiratory 18 Rate Blood Pressure 115/84 O2 Sat by Pulse 98 Oximetry Medical Decision Making - Lab Data Result diagrams: 09/02/21 17:57 09/02/21 17:57 Lab Results 09/02/21 09/02/21 09/02/21 Range/Units 17:57 17:57 18:25 WBC 11.9 H (3.8-10.6) k/uL RBC 4.50 (3.80-5.40) m/uL Hgb 14.8 (11.4-16.0) gm/dL Hct 42.8 (34.0-46.0) % MCV 95.1 (80.0-100.0) fL MCH 32.8 (25.0-35.0) pg MCHC 34.5 (31.0-37.0) g/dL RDW 13.2 (11.5-15.5) % Plt Count 285 (150-450) k/uL MPV 6.9 Neutrophils % 66 % Lymphocytes % 27 % Monocytes % 3 % Eosinophils % 3 % Basophils % 0 % Neutrophils # 7.8 H (1.3-7.7) k/uL Lymphocytes # 3.2 (1.0-4.8) k/uL Monocytes # 0.4 (0-1.0) k/uL Eosinophils # 0.3 (0-0.7) k/uL Basophils # 0.0 (0-0.2) k/uL Sodium 141 (137-145) mmol/L Potassium 3.6 (3.5-5.1) mmol/L Chloride 115 H (98-107) mmol/L Carbon Dioxide 16 L (22-30) mmol/L Anion Gap 10 mmol/L BUN 5 L (7-17) mg/dL Creatinine 0.77 (0.52-1.04) mg/dL Est GFR (CKD-EPI)AfAm >90 (>60 ml/min/1.73 sqM) Est GFR (CKD-EPI)NonAf >90 (>60 ml/min/1.73 sqM) Glucose 94 (74-99) mg/dL Calcium 9.4 (8.4-10.2) mg/dL Total Bilirubin 0.5 (0.2-1.3) mg/dL AST 20 (14-36) U/L ALT 26 (4-34) U/L Alkaline Phosphatase 54 (38-126) U/L Total Protein 6.7 (6.3-8.2) g/dL Albumin 4.3 (3.5-5.0) g/dL Urine HCG, Qual Not Detected (Not Detectd) Salicylates <1.0 mg/dL Urine Opiates Screen (NotDetected) Ur Oxycodone Screen (NotDetected) Urine Methadone Screen (NotDetected) Ur Propoxyphene Screen (NotDetected) Acetaminophen <10.0 ug/mL Ur Barbiturates Screen (NotDetected) U Tricyclic Antidepress (NotDetected) Ur Phencyclidine Scrn (NotDetected) Ur Amphetamines Screen (NotDetected) U Methamphetamines Scrn (NotDetected) U Benzodiazepines Scrn (NotDetected) [place] mmol/L Urine Cocaine Screen (NotDetected) U Marijuana (THC) Screen (NotDetected) Serum Alcohol <10 mg/dL 09/02/21 09/02/21 Range/Units 18:25 18:25 WBC (3.8-10.6) k/uL RBC (3.80-5.40) m/uL Hgb (11.4-16.0) gm/dL Hct (34.0-46.0) % MCV (80.0-100.0) fL MCH (25.0-35.0) pg MCHC (31.0-37.0) g/dL RDW (11.5-15.5) % Plt Count (150-450) k/uL MPV Neutrophils % % Lymphocytes % % Monocytes % % Eosinophils % % Basophils % % Neutrophils # (1.3-7.7) k/uL Lymphocytes # (1.0-4.8) k/uL Monocytes # (0-1.0) k/uL Eosinophils # (0-0.7) k/uL Basophils # (0-0.2) k/uL Sodium (137-145) mmol/L Potassium (3.5-5.1) mmol/L Chloride (98-107) mmol/L Carbon Dioxide (22-30) mmol/L Anion Gap mmol/L BUN (7-17) mg/dL Creatinine (0.52-1.04) mg/dL Est GFR (CKD-EPI)AfAm (>60 ml/min/1.73 sqM) Est GFR (CKD-EPI)NonAf (>60 ml/min/1.73 sqM) Glucose (74-99) mg/dL Calcium (8.4-10.2) mg/dL Total Bilirubin (0.2-1.3) mg/dL AST (14-36) U/L ALT (4-34) U/L Alkaline Phosphatase (38-126) U/L Total Protein (6.3-8.2) g/dL Albumin (3.5-5.0) g/dL Urine HCG, Qual (Not Detectd) Salicylates mg/dL Urine Opiates Screen Not Detected (NotDetected) Ur Oxycodone Screen Not Detected (NotDetected) Urine Methadone Screen Not Detected (NotDetected) Ur Propoxyphene Screen Not Detected (NotDetected) Acetaminophen ug/mL Ur Barbiturates Screen Not Detected (NotDetected) U Tricyclic Antidepress Not Detected (NotDetected) Ur Phencyclidine Scrn Not Detected (NotDetected) Ur Amphetamines Screen Not Detected (NotDetected) U Methamphetamines Scrn Not Detected (NotDetected) U Benzodiazepines Scrn Not Detected (NotDetected) [place] 0.8 mmol/L Urine Cocaine Screen Not Detected (NotDetected) U Marijuana (THC) Screen Not Detected (NotDetected) Serum Alcohol mg/dL Disposition Clinical Impression: Adjustment reaction of adult life Disposition: HOME SELF-CARE Condition: Good Instructions (If sedation given, give patient instructions): Help Prevent Suic irving (ED) Is patient prescribed a controlled substance at d/c from ED?: No Referrals: Ary Martins DO [Primary Care Provider] - 1-2 days
[2021-09-02 18:04] LABS: Basophils % (A) 0 %; Eosinophils # (A) 0.3 k/uL (0-0.7); Eosinophils % (A) 3 %; HCT 42.8 % (34.0-46.0); HGB 14.8 gm/dL (11.4-16.0); Lymphocytes # (A) 3.2 k/uL (1.0-4.8); Lymphocytes % (A) 27 %; MCH 32.8 pg (25.0-35.0); MCHC 34.5 g/dL (31.0-37.0); MCV 95.1 fL (80.0-100.0); Mean Platelet Volume 6.9; Monocytes # (A) 0.4 k/uL (0-1.0); Monocytes % (A) 3 %; Neutrophils # (A) 7.8 k/uL (1.3-7.7); Neutrophils % (A) 66 %; Platelet Count 285 k/uL (150-450); RDW 13.2 % (11.5-15.5); WBC 11.9 k/uL (3.8-10.6)
[2021-09-02 18:19] LABS: ALT 26 U/L (4-34); AST 20 U/L (14-36); Acetaminophen <10.0 ug/mL; African American GFR (CKD) >90 (>60 ml/min/1.73 sqM); Albumin 4.3 g/dL (3.5-5.0); Alcohol <10 mg/dL; Alkaline Phosphatase 54 U/L (38-126); Anion Gap 10 mmol/L; Blood Urea Nitrogen 5 mg/dL (7-17); Calcium 9.4 mg/dL (8.4-10.2); Carbon Dioxide 16 mmol/L (22-30); Chloride 115 mmol/L (98-107); Glucose 94 mg/dL (74-99); Non-African American GFR(CKD) >90 (>60 ml/min/1.73 sqM); Potassium 3.6 mmol/L (3.5-5.1); Salicylate <1.0 mg/dL; Sodium 141 mmol/L (137-145); Total Bilirubin 0.5 mg/dL (0.2-1.3); Total Protein 6.7 g/dL (6.3-8.2)
[2021-09-02 18:45] LABS: Amphetamine Screen,Urine Not Detected (NotDetected); Barbiturate Screen,Urine Not Detected (NotDetected); Benzodiazepines Screen,Urine Not Detected (NotDetected); Cocaine Screen,Urine Not Detected (NotDetected); Methadone Screen, Urine Not Detected (NotDetected); Opiate Screen,Urine Not Detected (NotDetected); Oxycodone Screen, Urine Not Detected (NotDetected); Phencyclidine Screen,Urine Not Detected (NotDetected); Tricyclic Antidepressant,Urine Not Detected (NotDetected); Urn Cannabinoid Scrn Not Detected (NotDetected)
== END 2021-09-02 20:47 | disposition home or self-care (01) ==
LOC: EC 16:35
DX: F43.20 Adjustment disorder, unspecified (principal); F32.9 Major depressive disorder, single episode, unspecified; F41.9 Anxiety disorder, unspecified; Z79.899 Other long term (current) drug therapy; Z82.49 Family history of ischemic heart disease and other diseases of the circulatory system; Z83.3 Family history of diabetes mellitus
CPT/HCPCS: 82075; 36415; 93005; 80053; 80178; 85025; 81025; 80306; 80143; 80179; 99284; G0480; 80320

== ENCOUNTER 2022-01-18 02:51 | Emergency (ER) | payer MEDICARE, OTHER ==
--- NOTE | 2022-01-18 04:22 | ED ---
Psych HPI - General Chief Complaint: Psychiatric Symptoms Stated Complaint: Mental Health Time Seen by Provider: 01/18/22 04:13 Source: patient, family, police, RN notes reviewed, old records reviewed, Caregiver Mode of arrival: EMS Limitations: no limitations - History of Present Illness Initial Comments: This is a 26-year-old female presented today with mother for psychiatric evaluation. Patient presents with PD under petition for psychiatric evaluation. Patient made multiple comments night during suicidal thoughts. Patient given made statements that she want the police to shoot her. Patient has no drug or alcohol abuse. Does have history of psychiatric illness and some developmental delay MD Complaint: suicidal ideation, feels depressed -: unknown Associated Psychiatric Symptoms: depression History of same: Yes Quality: intermittent Improves With: none Worsens With: none Context: significant life stressor Associated Symptoms: denies other symptoms Treatments Prior to Arrival: placed on mental health hold If Self Harm: admits thoughts of self harm - Related Data Home Medications Medication Instructions Recorded Confirmed Cornucopia Carbonate 1,200 mg PO HS 06/03/19 09/02/21 Venlafaxine HCl [Effexor XR] 150 mg PO DAILY 06/03/19 09/02/21 Medroxyprogesterone Acetate 150 mg IM Q84D 09/02/21 09/02/21 [Depo-Provera] Spravato 84mg 3 spray NASAL DIRECTED 09/02/21 09/02/21 Topiramate [Topamax] 100 mg PO BID 09/02/21 09/02/21 Venlafaxine HCl [Effexor XR] 75 mg PO DAILY 09/02/21 09/02/21 hydrOXYzine pamoate [Vistaril] 50 mg PO TID PRN 09/02/21 09/02/21 Allergies Allergy/AdvReac Type Severity Reaction Status Date / Time lamotrigine [From Lamictal] Allergy Unknown Verified 01/18/22 03:24 Review of Systems ROS Statement: Those systems with pertinent positive or pertinent negative responses have been documented in the HPI. ROS Other: All systems not noted in ROS Statement are negative. Past Medical History Past Medical History: No Reported History Additional Past Medical History / Comment(s): Asbergers Syndrome; sleep apnea History of Any Multi-Drug Resistant Organisms: None Reported Past Surgical History: No Surgical Hx Reported Past Anesthesia/Blood Transfusion Reactions: No Reported Reaction Past Psychological History: Anxiety, Depression, PTSD Smoking Status: Never smoker Past Alcohol Use History: None Reported Past Drug Use History: None Reported - Past Family History Father Family Medical History: Cancer, CVA/TIA, Myocardial Infarction ([place]) Additional Family Medical History / Comment(s): Father is age 58 and has unknown breast tumor Mother Family Medical History: Diabetes Mellitus Additional Family Medical History / Comment(s): Mother is alive at age 56. Patient has 2 sisters that are well by no and blind. She does not have any brothers. General Exam General appearance: alert, in no apparent distress Head exam: Present: atraumatic, normocephalic, normal inspection Eye exam: Present: normal appearance, PERRL, EOMI. Absent: scleral icterus, conjunctival injection, periorbital swelling ENT exam: Present: normal exam, mucous membranes moist Neck exam: Present: normal inspection. Absent: tenderness, meningismus, lymphadenopathy Respiratory exam: Present: normal lung sounds bilaterally. Absent: respiratory distress, wheezes, rales, rhonchi, stridor Cardiovascular Exam: Present: regular rate, normal rhythm, normal heart sounds. Absent: systolic murmur, diastolic murmur, rubs, gallop, clicks GI/Abdominal exam: Present: soft, normal bowel sounds. Absent: distended, tende rness, guarding, rebound, rigid Extremities exam: Present: normal inspection, full ROM, normal capillary refill. Absent: tenderness, pedal edema, joint swelling, calf tenderness Back exam: Present: normal inspection Neurological exam: Present: alert, oriented X3, CN II-XII intact Psychiatric exam: Present: normal affect, normal mood Skin exam: Present: warm, dry, intact, normal color. Absent: rash Course Vital Signs 01/18/22 05:21 Temperature 98.4 F Pulse Rate 99 Respiratory 20 Rate Blood Pressure 122/71 O2 Sat by Pulse 99 Oximetry - Reevaluation(s) Reevaluation #1: 01/18/22 06:28 Medical record is reviewed 01/18/22 06:29 Medical clear for psychiatric evaluation Medical Decision Making - Medical Decision Making 26 female to the emergency department for evaluation of psychiatric illness suicidal and suicidal thoughts. Patient seen and evaluated psychiatry deemed stable for discharge home patient did contract for safety - Lab Data Lab Results 01/18/22 01/18/22 Range/Units 04:13 04:13 Urine Color Yellow Urine Appearance Cloudy H (Clear) Urine pH 6.5 (5.0-8.0) Ur Specific [place] 1.026 (1.001-1.035) Urine Protein Trace H (Negative) Urine Glucose (UA) Negative (Negative) Urine Ketones Negative (Negative) Urine Blood Negative (Negative) Urine Nitrite Negative (Negative) Urine Bilirubin Negative (Negative) Urine Urobilinogen <2.0 (<2.0) mg/dL Ur Leukocyte Esterase Small H (Negative) Urine RBC 1 (0-5) /hpf Urine WBC 4 (0-5) /hpf Ur Squamous Epith Cells 7 H (0-4) /hpf Urine Bacteria Rare H (None) /hpf Urine Mucus Occasional H (None) /hpf Urine HCG, Qual Not Detected (Not Detectd) Urine Opiates Screen Not Detected (NotDetected) Ur Oxycodone Screen Not Detected (NotDetected) Urine Methadone Screen Not Detected (NotDetected) Ur Propoxyphene Screen Not Detected (NotDetected) Ur Barbiturates Screen Not Detected (NotDetected) U Tricyclic Antidepress Not Detected (NotDetected) Ur Phencyclidine Scrn Not Detected (NotDetected) Ur Amphetamines Screen Not Detected (NotDetected) U Methamphetamines Scrn Not Detected (NotDetected) U Benzodiazepines Scrn Not Detected (NotDetected) Urine Cocaine Screen Not Detected (NotDetected) U Marijuana (THC) Screen Not Detected (NotDetected) Disposition Clinical Impression: Major depressive disorder, recurrent, Borderline personality disorder Disposition: HOME SELF-CARE Condition: Fair Instructions (If sedation given, give patient instructions): Mood Disorders (ED) Is patient prescribed a controlled substance at d/c from ED?: No Referrals: None,Stated [REFERRING] - 1-2 days
[2022-01-18 04:40] LABS: Appearance,Urine Cloudy (Clear); Bacteria,Urine Rare /hpf; Bilirubin,Urine Negative (Negative); Blood,Urine Negative (Negative); Color,Urine Yellow; Glucose,Urine (UA) Negative (Negative); Ketones,Urine Negative (Negative); Leukocyte Esterase,Urine Small (Negative); Mucus,Urine Occasional /hpf; Nitrite,Urine Negative (Negative); PH, Urine 6.5 (5.0-8.0); Protein,Urine Trace (Negative); RBC,Urine 1 /hpf (0-5); Specific Gravity,Urine 1.026 (1.001-1.035); Squamous Epithelial Cell,Urine 7 /hpf (0-4); Urobilinogen,Urine <2.0 mg/dL (<2.0); WBC,Urine 4 /hpf (0-5)
[2022-01-18 04:41] LABS: Amphetamine Screen,Urine Not Detected (NotDetected); Barbiturate Screen,Urine Not Detected (NotDetected); Benzodiazepines Screen,Urine Not Detected (NotDetected); Cocaine Screen,Urine Not Detected (NotDetected); Methadone Screen, Urine Not Detected (NotDetected); Opiate Screen,Urine Not Detected (NotDetected); Oxycodone Screen, Urine Not Detected (NotDetected); Phencyclidine Screen,Urine Not Detected (NotDetected); Tricyclic Antidepressant,Urine Not Detected (NotDetected); Urn Cannabinoid Scrn Not Detected (NotDetected)
[2022-01-18 05:22] VITALS: BP 122/71; PULSE 99; RESP 20; TEMP 98.4
== END 2022-01-18 08:58 | disposition home or self-care (01) ==
LOC: EC 02:51
DX: F33.9 Major depressive disorder, recurrent, unspecified (principal); F60.3 Borderline personality disorder; F41.9 Anxiety disorder, unspecified; Z79.899 Other long term (current) drug therapy
CPT/HCPCS: 80306; 81001; 81025; 82075; 99284

== ENCOUNTER 2022-07-06 11:40 | Inpatient (IN) | payer MEDICARE, OTHER, MEDICAID ==
[2022-07-06] MEDS ORDERED: ZIPRASIDONE 20 MG VIAL IM STA (12:30)
--- NOTE | 2022-07-06 13:13 | ED ---
Psych HPI - General Source: patient, family, RN notes reviewed Mode of arrival: ambulatory Limitations: no limitations <Reynaldo Kamara - Last Filed: 07/06/22 15:50> <Harlan Estrella - Last Filed: 07/06/22 19:16> - General Chief Complaint: Psychiatric Symptoms Stated Complaint: mental health Time Seen by Provider: 07/06/22 12:00 - History of Present Illness Initial Comments: 27-year-old female presents emergency Department with mother for evaluation of psychiatric issues. Patient went for [facility] and states that she became very belligerent, screaming profanities and angry. Patient left with mother she states that patient's increasing pain angry, agitated and bizarre behavior. Patient is not taking her psychiatric medications today. Patient has a long history of psychiatric issues. (Reynaldo Kamara) - Related Data Home Medications Medication Instructions Recorded Confirmed [place]ra Carbonate 1,200 mg PO DAILY 06/03/19 07/06/22 Venlafaxine HCl [Effexor XR] 150 mg PO DAILY 06/03/19 07/06/22 Medroxyprogesterone Acetate 150 mg IM Q84D 09/02/21 07/06/22 [Depo-Provera] Spravato 84mg 3 spray NASAL Q14D 09/02/21 07/06/22 ALPRAZolam [Xanax] 1 mg PO BID PRN 07/06/22 07/06/22 Haloperidol Lactate 1 mg IM DIRECTED PRN 07/06/22 07/06/22 Chacra Carbonate 300 mg PO DAILY 07/06/22 07/06/22 Allergies Allergy/AdvReac Type Severity Reaction Status Date / Time lamotrigine [From Lamictal] AdvReac dizzy/difficult Verified 07/06/22 12:04 standing/neurological symptoms Review of Systems ROS Other: All systems not noted in ROS Statement are negative. <Reynaldo Kamara - Last Filed: 07/06/22 15:50> ROS Other: All systems not noted in ROS Statement are negative. <Harlan Estrella - Last Filed: 07/06/22 19:16> ROS Statement: Those systems with pertinent positive or pertinent negative responses have been documented in the HPI. Past Medical History Past Medical History: No Reported History Additional Past Medical History / Comment(s): Asbergers Syndrome; sleep apnea History of Any Multi-Drug Resistant Organisms: None Reported Past Surgical History: No Surgical Hx Reported Past Anesthesia/Blood Transfusion Reactions: No Reported Reaction Past Psychological History: Anxiety, Depression, PTSD Smoking Status: Never smoker Past Alcohol Use History: None Reported Past Drug Use History: None Reported - Past Family History Father Family Medical History: Cancer, CVA/TIA, Myocardial Infarction ([place]) Additional Family Medical History / Comment(s): Father is age 58 and has unknown breast tumor Mother Family Medical History: Diabetes Mellitus Additional Family Medical History / Comment(s): Mother is alive at age 56. Patient has 2 sisters that are well by no and blind. She does not have any brothers. <Reynaldo Kamara - Last Filed: 07/06/22 15:50> General Exam Limitations: no limitations General appearance: alert, in no apparent distress, anxious, other (Agitated) Head exam: Present: atraumatic, normocephalic, normal inspection Eye exam: Present: normal appearance, PERRL, EOMI. Absent: scleral icterus, conjunctival injection, periorbital swelling ENT exam: Present: normal exam, mucous membranes moist Neck exam: Present: normal inspection. Absent: tenderness, meningismus, lymphadenopathy Respiratory exam: Present: normal lung sounds bilaterally. Absent: respiratory distress, wheezes, rales, rhonchi, stridor Cardiovascular Exam: Present: regular rate, normal rhythm, normal heart sounds. Absent: systolic murmur, diastolic murmur, rubs, gallop, clicks Neurological exam: Present: alert, oriented X3 Psychiatric exam: Present: agitated Skin exam: Present: warm, dry, intact, normal color. Absent: rash <Reynaldo Kamara M - Last Filed: 07/06/22 15:50> Course Vital Signs 07/06/22 11:59 Temperature 98 F Pulse Rate 89 Respiratory 18 Rate Blood Pressure 141/77 O2 Sat by Pulse 98 Oximetry Procedures - Restraint - Face to Face Restraint Occurrence 1 Patient's Immediate Situation: Endangers self safety, Endangers others' safety, Endangers staff safety Patient's Reaction to the Intervention: Uncooperative, Angry, Combative Patient's Medical & Behavioral Condition: Awake, Alert, Agitated Need to Continue or Terminate Restraint or Seclusion: Continue Face to Face Eval of Restraint Date: 07/06/22 Face to Face Eval of Restraint Time: 12:31 <Reynaldo Kamara - Last Filed: 07/06/22 15:50> Medical Decision Making <Reynaldo Kamara - Last Filed: 07/06/22 15:50> <aHrlan Estrella - Last Filed: 07/06/22 19:16> - Medical Decision Making 27-year-old female presented for psychiatric evaluation. Patient was evaluated EPS patient felt she needs inpatient treatment. (Reynaldo Kamara) Was notified by EPS to the inpatient treatment. Certification was completed by myself. This is placed in the chart. Disposition is pending admission. (Harlan Estrella) - Lab Data Lab Results 07/06/22 07/06/22 07/06/22 Range/Units 16:41 16:45 17:51 Urine Color Yellow Urine Appearance Clear (Clear) Urine pH 6.5 (5.0-8.0) Ur Specific [place] 1.018 (1.001-1.035) Urine Protein Negative (Negative) Urine Glucose (UA) Negative (Negative) Urine Ketones Negative (Negative) Urine Blood Negative (Negative) Urine Nitrite Negative (Negative) Urine Bilirubin Negative (Negative) Urine Urobilinogen <2.0 (<2.0) mg/dL Ur Leukocyte Esterase Negative (Negative) Urine HCG, Qual Not Detected (Not Detectd) Urine Opiates Screen (NotDetected) Ur Oxycodone Screen (NotDetected) Urine Methadone Screen (NotDetected) Ur Propoxyphene Screen (NotDetected) Ur Barbiturates Screen (NotDetected) U Tricyclic Antidepress (NotDetected) Ur Phencyclidine Scrn (NotDetected) Ur Amphetamines Screen (NotDetected) U Methamphetamines Scrn (NotDetected) U Benzodiazepines Scrn (NotDetected) Urine Cocaine Screen (NotDetected) U Marijuana (THC) Screen (NotDetected) Coronavirus (PCR) Not Detected (Not Detectd) 07/06/22 Range/Units Unknown Urine Color Urine Appearance (Clear) Urine pH (5.0-8.0) Ur Specific [place] (1.001-1.035) Urine Protein (Negative) Urine Glucose (UA) (Negative) Urine Ketones (Negative) Urine Blood (Negative) Urine Nitrite (Negative) Urine Bilirubin (Negative) Urine Urobilinogen (<2.0) mg/dL Ur Leukocyte Esterase (Negative) Urine HCG, Qual (Not Detectd) Urine Opiates Screen Not Detected (NotDetected) Ur Oxycodone Screen Not Detected (NotDetected) Urine Methadone Screen Not Detected (NotDetected) Ur Propoxyphene Screen Not Detected (NotDetected) Ur Barbiturates Screen Not Detected (NotDetected) U Tricyclic Antidepress Not Detected (NotDetected) Ur Phencyclidine Scrn Not Detected (NotDetected) Ur Amphetamines Screen Not Detected (NotDetected) U Methamphetamines Scrn Not Detected (NotDetected) U Benzodiazepines Scrn Detected H (NotDetected) Urine Cocaine Screen Not Detected (NotDetected) U Marijuana (THC) Screen Not Detected (NotDetected) Coronavirus (PCR) (Not Detectd) Disposition Time of Disposition: 15:51 <Reynaldo Kamara - Last Filed: 07/06/22 15:50> <Harlan Estrella - Last Filed: 07/06/22 19:16> Clinical Impression: Bipolar disorder, Acute psychosis Disposition: TRANSFER TO PSYCH HOSP/UNIT Condition: Stable Referrals: Ary Martins DO [Primary Care Provider] - 1-2 days
[2022-07-06 15:24] LABS: Amphetamine Screen,Urine Not Detected (NotDetected); Barbiturate Screen,Urine Not Detected (NotDetected); Benzodiazepines Screen,Urine Detected (NotDetected); Cocaine Screen,Urine Not Detected (NotDetected); Methadone Screen, Urine Not Detected (NotDetected); Opiate Screen,Urine Not Detected (NotDetected); Oxycodone Screen, Urine Not Detected (NotDetected); Phencyclidine Screen,Urine Not Detected (NotDetected); Tricyclic Antidepressant,Urine Not Detected (NotDetected); Urn Cannabinoid Scrn Not Detected (NotDetected)
[2022-07-06 16:48] LABS: Appearance,Urine Clear (Clear); Bilirubin,Urine Negative (Negative); Blood,Urine Negative (Negative); Color,Urine Yellow; Glucose,Urine (UA) Negative (Negative); Ketones,Urine Negative (Negative); Leukocyte Esterase,Urine Negative (Negative); Nitrite,Urine Negative (Negative); PH, Urine 6.5 (5.0-8.0); Protein,Urine Negative (Negative); Specific Gravity,Urine 1.018 (1.001-1.035); Urobilinogen,Urine <2.0 mg/dL (<2.0)
[2022-07-06] MEDS ORDERED: ALPRAZolam 1 MG TAB PO PRN (18:51)
[2022-07-06] MEDS ORDERED: ALPRAZolam 1 MG TAB PO STA (18:53)
[2022-07-06] MEDS ORDERED: MAGNESIUM HYDROXIDE 2,400 MG/10 ML CUP PO PRN (21:13)
[2022-07-06 21:49] LABS: Basophils # (A) 0.1 k/uL (0-0.2); Basophils % (A) 1 %; Eosinophils # (A) 0.4 k/uL (0-0.7); Eosinophils % (A) 3 %; HGB 14.9 gm/dL (11.4-16.0); Lymphocytes % (A) 31 %; MCH 31.1 pg (25.0-35.0); MCHC 33.2 g/dL (31.0-37.0); MCV 93.8 fL (80.0-100.0); Mean Platelet Volume 7.2; Monocytes # (A) 0.6 k/uL (0-1.0); Monocytes % (A) 5 %; Neutrophils # (A) 7.9 k/uL (1.3-7.7); Neutrophils % (A) 61 %; Platelet Count 399 k/uL (150-450); RDW 12.6 % (11.5-15.5)
[2022-07-06] MEDS ORDERED: hydrOXYzine HCL 50 MG/ML 1 ML VIAL IM PRN (22:00)
[2022-07-06] MEDS ORDERED: hydrOXYzine pamoate 25 MG CAP PO PRN (22:00)
[2022-07-06] MEDS ORDERED: ZIPRASIDONE 20 MG CAP PO PRN (22:00)
[2022-07-06] MEDS ORDERED: ZIPRASIDONE 20 MG VIAL IM PRN (22:00)
[2022-07-06 22:15] LABS: ALT 37 U/L (4-34); AST 28 U/L (14-36); African American GFR (CKD) >90 (>60 ml/min/1.73 sqM); Albumin 4.6 g/dL (3.5-5.0); Alkaline Phosphatase 68 U/L (38-126); Anion Gap 15 mmol/L; Bilirubin, Delta 0.2 mg/dL (0.0-0.2); Bilirubin,Unconjugated 0.1 mg/dL (0.0-1.1); Blood Urea Nitrogen 8 mg/dL (7-17); Calcium 9.6 mg/dL (8.4-10.2); Carbon Dioxide 18 mmol/L (22-30); Chloride 108 mmol/L (98-107); Glucose 93 mg/dL (74-99); Lithium <0.2 mmol/L; Non-African American GFR(CKD) >90 (>60 ml/min/1.73 sqM); Potassium 3.8 mmol/L (3.5-5.1); Sodium 141 mmol/L (137-145); Total Bilirubin 0.3 mg/dL (0.2-1.3)
[2022-07-07] MEDS: LITHIUM CARBONATE 150 MG CAP PO SCH ×2 (01:31→20:25)
[2022-07-07] MEDS: NICOTINE 14MG/24HR PATCH TRANSDERM SCH (09:14)
[2022-07-07] MEDS: VENLAFAXINE HCL ER 150 MG CAP PO SCH (09:14)
[2022-07-07 11:29] LABS: Chol/HDL Ratio 5.39 Ratio; LDL Cholesterol,Calculated 95.1 mg/dL (0.0-131.0)
[2022-07-07] MEDS ORDERED: diphenhydrAMINE 25 MG CAP PO PRN (12:23)
[2022-07-07] MEDS ORDERED: LORazepam 1 MG TAB PO PRN (12:23)
[2022-07-07] MEDS ORDERED: haloperidoL 5 MG TAB PO PRN (12:24)
--- NOTE | 2022-07-07 13:40 | P.HP ---
Psychiatric H&P - . H&P Date: 07/07/22 History & Physical: Allergies Allergy/AdvReac Type Severity Reaction Status Date / Time lamotrigine From Lamictal AdvReac dizzy/difficult Verified 07/06/22 12:04 standing/neurological symptoms Vital Signs Temp 97.7 F 07/06/22 22:12 Pulse 100 07/06/22 22:12 Resp 20 07/06/22 22:12 BP 148/64 07/06/22 22:12 Pulse Ox 95 07/06/22 22:12 FiO2 Intake & Output 07/06/22 07/07/22 07/07/22 18:59 06:59 18:59 Weight 124.738 kg Laboratory Last Values WBC 13.0 k/uL (3.8-10.6) H 07/06/22 21:31 RBC 4.80 m/uL (3.80-5.40) 07/06/22 21:31 Hgb 14.9 gm/dL (11.4-16.0) 07/06/22 21:31 Hct 45.0 % (34.0-46.0) 07/06/22 21:31 MCV 93.8 fL (80.0-100.0) 07/06/22 21:31 MCH 31.1 pg (25.0-35.0) 07/06/22 21:31 MCHC 33.2 g/dL (31.0-37.0) 07/06/22 21:31 RDW 12.6 % (11.5-15.5) 07/06/22 21:31 Plt Count 399 k/uL (150-450) 07/06/22 21:31 MPV 7.2 07/06/22 21:31 Neutrophils % 61 % 07/06/22 21:31 Lymphocytes % 31 % 07/06/22 21:31 Monocytes % 5 % 07/06/22 21:31 Eosinophils % 3 % 07/06/22 21:31 Basophils % 1 % 07/06/22 21:31 Neutrophils # 7.9 k/uL (1.3-7.7) H 07/06/22 21:31 Lymphocytes # 4.0 k/uL (1.0-4.8) 07/06/22 21:31 Monocytes # 0.6 k/uL (0-1.0) 07/06/22 21: Eosinophils # 0.4 k/uL (0-0.7) 07/06/22 21: Basophils # 0.1 k/uL (0-0.2) 07/06/22 21:31 Sodium 141 mmol/L (137-145) 07/06/22 21:31 Potassium 3.8 mmol/L (3.5-5.1) 07/06/22 21: Chloride 108 mmol/L (98-107) H 07/06/22 21: Carbon Dioxide 18 mmol/L (22-30) L 07/06/22 21: Anion Gap 15 mmol/L 07/06/22 21:31 BUN 8 mg/dL (7-17) 07/06/22 21: Creatinine 0.67 mg/dL (0.52-1.04) 07/06/22 21:31 Est GFR (CKD-EPI)AfAm >90 (>60 ml/min/1.73 sqM) 07/06/22 21: Est GFR (CKD-EPI)NonAf >90 (>60 ml/min/1.73 sqM) 07/06/22 21: Glucose 93 mg/dL (74-99) 07/06/22 21: Estimated Ave Glu mg/dL 101 07/06/22 21: Hemoglobin A1c 5.2 % (0.0-6.0) 07/06/22 21: Calcium 9.6 mg/dL (8.4-10.2) 07/06/22 21: Total Bilirubin 0.3 mg/dL (0.2-1.3) 07/06/22 21: Conjugated Bilirubin 0.0 mg/dL (0.0-0.3) 07/06/22 21: Unconjugated Bilirubin 0.1 mg/dL (0.0-1.1) 07/06/22 21: Delta Bilirubin 0.2 mg/dL (0.0-0.2) 07/06/22 21:31 AST 28 U/L (14-36) 07/06/22 21: ALT 37 U/L (4-34) H 07/06/22 21:31 Alkaline Phosphatase 68 U/L (38-126) 07/06/22 21: Total Protein 7.0 g/dL (6.3-8.2) 07/06/22 21: Albumin 4.6 g/dL (3.5-5.0) 07/06/22 21:31 Triglycerides 225.00 mg/dL (0.00-149.00) H 07/06/22 21:31 Cholesterol 172.00 mg/dL (0.00-200.00) 07/06/22 21: LDL Cholesterol, Calc 95.1 mg/dL (0.0-131.0) 07/06/22 21: VLDL Cholesterol, Calc 45.00 mg/dL (5.00-40.00) H 07/06/22 21: HDL Cholesterol 31.90 mg/dL (40.00-60.00) L 07/06/22 21: Cholesterol/HDL Ratio 5.39 Ratio 07/06/22 21: TSH 2.170 mIU/L (0.465-4.680) 07/06/22 21:31 Urine Color Yellow 07/06/22 16:41 Urine Appearance Clear (Clear) 07/06/22 16:41 Urine pH 6.5 (5.0-8.0) 07/06/22 16:41 Ur Specific [place] 1.018 (1.001-1.035) 07/06/22 16:41 Urine Protein Negative (Negative) 07/06/22 16:41 Urine Glucose (UA) Negative (Negative) 07/06/22 16:41 Urine Ketones Negative (Negative) 07/06/22 16:41 Urine Blood Negative (Negative) 07/06/22 16:41 Urine Nitrite Negative (Negative) 07/06/22 16:41 Urine Bilirubin Negative (Negative) 07/06/22 16:41 Urine Urobilinogen <2.0 mg/dL (<2.0) 07/06/22 16:41 Ur Leukocyte Esterase Negative (Negative) 07/06/22 16:41 Urine HCG, Qual Not Detected (Not Detectd) 07/06/22 16:45 Urine Opiates Screen Not Detected (NotDetected) 07/06/22 Unknown Ur Oxycodone Screen Not Detected (NotDetected) 07/06/22 Unknown Urine Methadone Screen Not Detected (NotDetected) 07/06/22 Unknown Ur Propoxyphene Screen Not Detected (NotDetected) 07/06/22 Unknown Ur Barbiturates Screen Not Detected (NotDetected) 07/06/22 Unknown U Tricyclic Antidepress Not Detected (NotDetected) 07/06/22 Unknown Ur Phencyclidine Scrn Not Detected (NotDetected) 07/06/22 Unknown Ur Amphetamines Screen Not Detected (NotDetected) 07/06/22 Unknown U Methamphetamines Scrn Not Detected (NotDetected) 07/06/22 Unknown U Benzodiazepines Scrn Detected (NotDetected) H 07/06/22 Unknown [place] <0.2 mmol/L 07/06/22 21:31 Urine Cocaine Screen Not Detected (NotDetected) 07/06/22 Unknown U Marijuana (THC) Screen Not Detected (NotDetected) 07/06/22 Unknown Coronavirus (PCR) Not Detected (Not Detectd) 07/06/22 17:51 07/07/22 13:31 IDENTIFYING DATA: Patient is a 27-year-old female currently lives with her parents in a house and apparently still in college. HPI: Patient presented to the hospital yesterday on a petition stating that patient attempted to jump out of a moving car twice and has been speaking about suicidal thoughts with attempt to drink poisonous substances. Patient does have a history of borderline personality disorder depression and anxiety. She was admitted involuntarily last night and able to speak to typewriters functional tester this morning. Patient was fairly irritable and argumentative throughout the entire interview. She made several negative comments towards typewriters functional tester and believes that he was "going to mess up my medications". She claims that she is doing TMS in [place] and had a "negative reaction" and states that she had a "TMS dip" and states "it was making her depression and suicidal thoughts worse. She claims that she has gone a time so far. She states that she is feeling depressed and anxious at this time. She claims that she is also feeling irritable and was brought in by her mother because she is "blowing things out of proportion". She demonstrates fairly poor insight and judgment and poor impulse control. She claims that she has been taking her medications however her lithium level was below 0.2 on admission. She claims that she does have chronic suicidal thoughts and has been having more recently however states that "I'm not going to act on them". She states that her sleep has been on and off appetite has been fair. She was fairly focused on obtaining Xanax and her own medications. Patient denies any homicidal ideations intent or plan. At this time patient denies any auditory or visual hallucinations. Patient denies any flight of ideas racing thoughts and increased in goal directed behavior. Patient admits to using no recreational drugs or cigarettes. PAST PSYCHIATRIC HISTORY: Patient states that she has a history of depression and anxiety and also borderline personality disorder. Patient claims that she is on several different medications including lithium, rexulti, Xanax and Effexor. Patient was last psychiatrically hospitalized in 2017. Patient currently follows up with her nurse practitioner at [facility]. She claims that she has had several suicide attempts in the past. PMH: As per medicine H&P. ALLERGIES: as per EMR CHEMICAL DEPENDENCY HISTORY: as per HPI FAMILY PSYCHIATRIC/SUBSTANCE USE HISTORY: Claims that her cousin committed suicide, one uncle has depression and another uncle has schizophrenia. SOCIAL HISTORY: Patient was born and raised in [facility]. She states that she completed her GED and is now attending college. She claims that she has no legal history. She states that she lives with her parents, lives in a house has no kids. MENTAL STATUS EXAM: General Appearance: Patient appears to be obese, stated age is alert, irritable argumentative and difficult to redirect. Patient appears to have poor hygiene and grooming. Behavior: Patient is seated without any agitated behavior. Irritable and argumentative Speech: Patient's speech is fluent and nonpressured. Loud and demanding Mood/Affect: Patient reports their mood is depressed and anxious, affect is congruent Suicidality/Homicidality: Patient denies having any homicidal ideation intent or plan. Claims to have on and off suicidal ideations, no intent or plan. Perceptions: Patient denies any visual hallucinations and denies any auditory hallucinations Though content/process: There is no evidence of any delusional thought content and thought process is linear and goal-directed. Focused on her medications and argumentative and hostile with typewriters functional tester. Memory and concentration: AOX3, grossly intact for the purposes of this session. Can spell "WORLD" backwards Judgment and insight: poor STRENGTHS/WEAKNESSES: strength is that patient is resilient. Weakness is that patient has poor judgment and is impulsive INTELLECT: average IMPRESSIONS: Major depressive disorder without psychotic features Anxiety disorder unspecified Borderline personality disorder PLAN: -Patient is admitted under voluntary status to [facility] for stabilization of psychiatric symptoms and safety. Patient has signed adult voluntary form and medication consent and is placed in patient's chart. -Medications : Will start patient on Vistaril when necessary for anxiety, Benadryl 25 mg daily at bedtime when necessary for insomnia, continue with lithium 900 mg daily at bedtime for mood stabilization/suicidal ideations, continue Effexor 150 mg daily for mood/anxiety, latuda 20 mg at 1800 with dinner for mood stabilization/depression. -Ativan and Haldol PRN for agitation/aggression -Patient was informed of the risks, benefits and side effects of the medication and patient did not sign med consent. -Internal Medicine consult to perform medical evaluation and physical. -NRT - not needed as patient does not smoke. -SW on board for discharge planning. Encourage patient to participate in groups to work on coping skills.
--- NOTE | 2022-07-07 13:52 | P.CONS ---
History of Present Illness - Reason for Consult Consult date: 07/07/22 Medical management Requesting physician: Azam Caicedo - Chief Complaint Abnormal behavior. - History of Present Illness This is a 27-year-old patient, follows with Dr. Ary early. Patient has a known history of anxiety depression PTSD/sleep apnea asbergers syndrome. As per the ER physician patient has not taken her psychiatry medications the day of presentation. Patient became very belligerent, screaming profanities and being angry. Behavior was very bizarre. It is difficult to interview the patient and she would burst out crying. This starts swearing. She wants to change his psychiatrist. Unable to also questions correctly. She would keep repeating that she did not want answered my questions.. I kept reassuring her that this for her good. She does tell me that oftentimes to this diarrhea when she each. Hence she does not eat much. She has stomach troubles but does not want to tell me the same. No heartburn. Does not sleep well. Patient is very agitated. Crying intermittently and swearing. Review of systems: GEN.: None EYES: None HEENT: None NECK: None RESPIRATORY: None CARDIOVASCULAR: None GASTROINTESTINAL: As above GENITOURINARY: None MUSCULOSKELETAL: None LYMPHATICS: None HEMATOLOGICAL: None PSYCHIATRY: Anxious NEUROLOGICAL: None Past medical history to include: Sleep apnea, anxiety depression, PTSD,asbergers Social history: Lives with the parents. Patient is supposed to start classes at [employer] [place]. Denies use of any recreational drugs including smoking or alcohol Physical examination: VITAL SIGNS: 97.7, 100, 20, 1 48 x 64, 95% room air GENERAL: BMI 43.1, sitting up, tearful agitated. EYES: Pupils equal. Conjunctiva normal. HEENT: External appearance of nose and ears normal, oral cavity grossly normal. NECK: JVD not raised; masses not palpable. HEART: First and second heart sounds are normal; no edema. LUNGS: Respiratory rate normal; clear to auscultation. ABDOMEN: Soft, nontender, liver spleen not palpable, no masses palpable. PSYCH: Alert and oriented x3; mood and affect anxious agitatedl. MUSCULOSKELETAL:No Clubbing/cyanosis;muscles-grossly intact NEUROLOGICAL: Cranial nerves grossly intact; no facial asymmetry, power and sensation grossly intact. LYMPHATICS: No lymph nodes palpable in the axilla and neck INVESTIGATIONS, reviewed in the clinical context: WBC 13 hemoglobin 14.9 platelets 399 sodium 141 potassium 3.8 creatinine 0.67 LDL 95.1 TSH 2.1 UA: Negative Urine hCG not detected Urine drug screen positive for benzodiazepine. 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 Patient to follow-up for the same with her family doctor. Denies any reflux symptoms -Mild leukocytosis. No clinical evidence of infection. No respiratory urinary symptoms. Thank you Dr. Caicedo Past Medical History Past Medical History: No Reported History Additional Past Medical History / Comment(s): Asbergers Syndrome; sleep apnea History of Any Multi-Drug Resistant Organisms: None Reported Past Surgical History: No Surgical Hx Reported Past Anesthesia/Blood Transfusion Reactions: No Reported Reaction Smoking Status: Never smoker - Past Family History Father Family Medical History: Cancer, CVA/TIA, Myocardial Infarction ([place]) Additional Family Medical History / Comment(s): Father is age 58 and has unknown breast tumor Mother Family Medical History: Diabetes Mellitus Additional Family Medical History / Comment(s): Mother is alive at age 56. Patient has 2 sisters that are well by no and blind. She does not have any brothers. Medications and Allergies Home Medications Medication Instructions Recorded Confirmed Type [place] Carbonate 1,200 mg PO DAILY 06/03/19 07/06/22 History Venlafaxine HCl [Effexor XR] 150 mg PO DAILY 06/03/19 07/06/22 History Medroxyprogesterone Acetate 150 mg IM Q84D 09/02/21 07/06/22 History [Depo-Provera] Spravato 84mg 3 spray NASAL Q14D 09/02/21 07/06/22 History ALPRAZolam [Xanax] 1 mg PO BID PRN 07/06/22 07/06/22 History Haloperidol Lactate 1 mg IM DIRECTED PRN 07/06/22 07/06/22 History [place] Carbonate 300 mg PO DAILY 07/06/22 07/06/22 History Allergies Allergy/AdvReac Type Severity Reaction Status Date / Time lamotrigine [From Lamictal] AdvReac dizzy/difficult Verified 07/06/22 12:04 standing/neurological symptoms Physical Exam Vitals: Vital Signs Temp Pulse Resp BP Pulse Ox 07/06/22 22:12 97.7 F 100 20 148/64 95 Results CBC & Chem 7: 07/06/22 21:31 07/06/22 21:31 Labs: Abnormal Lab Results - Last 24 Hours (Table) 07/06/22 07/06/22 07/06/22 Range/Units 21:31 21:31 Unknown WBC 13.0 H (3.8-10.6) k/uL Neutrophils # 7.9 H (1.3-7.7) k/uL Chloride 108 H (98-107) mmol/L Carbon Dioxide 18 L (22-30) mmol/L ALT 37 H (4-34) U/L Triglycerides 225.00 H (0.00-149.00) mg/dL VLDL Cholesterol, Calc 45.00 H (5.00-40.00) mg/dL HDL Cholesterol 31.90 L (40.00-60.00) mg/dL U Benzodiazepines Scrn Detected H (NotDetected)
[2022-07-07] MEDS: LURASIDONE 20 MG TAB PO SCH (17:40)
[2022-07-07] MEDS: MAG HYDROX/AL HYDROX/SIMETH 30 ML CUP PO PRN (19:20)
[2022-07-08] MEDS: NICOTINE 14MG/24HR PATCH TRANSDERM SCH (08:32)
[2022-07-08] MEDS: VENLAFAXINE HCL ER 150 MG CAP PO SCH (08:33)
--- NOTE | 2022-07-08 09:33 | P.PN ---
Progress Note - Text Progress Note Date: 07/08/22 Interval History: Patient was seen wandering the hallways and was directable and agreeable to sp crystal with administrative underwriter in the office. Patient appears to be less irritable today. She states that she feels a bit better in terms of her depression and anxiety. She states she signed an AMA yesterday and states that she has "3 days to be discharged". She continues to be focused on discharge and going back to her outpatient treatments including TMS and spravato. We spoke about her diagnosis and the indications for treatment of her medications and also the other novelty treatments that she is seeking. She claims that she is going to groups and is agreeable to continue on with treatment. She states that she slept fairly throughout the night. At this time patient denies any suicidal or homical ideations, intent or plan. Patient denies any auditory, visual hallucinations and denies any paranoia or delusions. Patient denies any side effects from the medications and has been compliant with meds. Mental Status Exam: General Appearance: Patient appears to be obese, stated age is alert, less i rritable today. Patient appears to have improving hygiene and grooming. Behavior: Patient is seated without any agitated behavior. Last Irritable and argumentative Speech: Patient's speech is fluent and nonpressured. Mood/Affect: Patient reports their mood is improving mildly, affect is congruent Suicidality/Homicidality: Patient denies having any homicidal ideation intent or plan. She claims that she does not have any suicidal ideations intent or plan today. Perceptions: Patient denies any visual hallucinations and denies any auditory hallucinations Though content/process: There is no evidence of any delusional thought content and thought process is linear and goal-directed. Focused on her medications and discharge. Memory and concentration: AOX3, grossly intact for the purposes of this session Judgment and insight: poor, improving mildly IMPRESSIONS: Major depressive disorder without psychotic features Anxiety disorder unspecified Borderline personality disorder Plan: -Patient continues to meet criteria for inpatient psychiatric admission for symptom stabilization and safety. Patient has not signed adult voluntary form and medication consent and was placed in patient's chart. -Medications: Vistaril when necessary for anxiety, Benadryl 25 mg daily at bedtime when necessary for insomnia, continue with lithium 900 mg daily at bedtime for mood stabilization/suicidal ideations, continue Effexor 150 mg daily for mood/anxiety, latuda 20 mg at 1800 with dinner for mood stabilization/depression, this can be increased over the weekend if needed. -When necessary Ativan and Haldol for agitation/aggression. -NRT - not needed as patient does not smoke. -SW on board for discharge planning. Encouraged the patient to participate in milieu. patient signed AMA on 07/07 and will on monday. likely discharge either monday or monday if patient continues to improve.
[2022-07-08] MEDS: MAG HYDROX/AL HYDROX/SIMETH 30 ML CUP PO PRN (12:47)
[2022-07-08] MEDS: LURASIDONE 20 MG TAB PO SCH (17:38)
[2022-07-08] MEDS: LITHIUM CARBONATE 150 MG CAP PO SCH (19:52)
[2022-07-08] MEDS: ACETAMINOPHEN TAB 325 MG TAB PO PRN (20:18)
[2022-07-09] MEDS: VENLAFAXINE HCL ER 150 MG CAP PO SCH (08:30)
[2022-07-09] MEDS: NICOTINE 14MG/24HR PATCH TRANSDERM SCH (08:31)
[2022-07-09 08:32] VITALS: RESP 18; TEMP 97.8
[2022-07-09] MEDS: ACETAMINOPHEN TAB 325 MG TAB PO PRN (18:06)
[2022-07-09] MEDS: LURASIDONE 20 MG TAB PO SCH (18:06)
[2022-07-09] MEDS: LITHIUM CARBONATE 150 MG CAP PO SCH (19:52)
[2022-07-09] MEDS ORDERED: ONDANSETRON 4 MG TAB PO PRN (20:23)
--- NOTE | 2022-07-09 20:27 | P.PN ---
Progress Note - Text Progress Note Date: 07/09/22 Interval history: Patient was seen wandering the hallways and was directable and agreeable to speak with proposal manager writer. She states she is prescribed Zofran as an outpatient and would like this prescribed here since she gets nausea following meals due to pre-existing GI issue. She is cooperative but with irritable edge. At this time, patient denies any suicidal or homicidal ideations intent or plan. She denies any auditory or visual hallucinations. Patient denies any side effects from the medications and has been compliant with meds. Mental status exam: General Appearance: Patient appears to be stated age, obese female, odd affect Behavior: No agitated behavior. Patient is directable but with irritable edge. Speech: Patient's speech is fluent and non-pressured. Mood/Affect: Mood is improving mildly, affect is congruent and constricted. Suicidality/Homicidality: Patient denies having any suicidal or homicidal ideation intent or plan. Perceptions: Patient denies any auditory or visual hallucinations. Though content/process: There is no evidence of any delusional thought content and thought process is linear and goal-directed. Memory and concentration: AOX3, grossly intact for the purposes of this session Judgment and insight: improving mildly Assessment/Plan: Continue with current diagnosis. Patient continues to meet criteria for inpatient psychiatric admission for symptom stabilization and safety. Patient will be maintained on current psychotropic medication regimen. Zofran 4 mg Q8H PRN ordered until patient can be seen by the medical doctor. Monitor for medication compliance and for any psychotropic medication side effects. Will continue to monitor ongoing response to treatment. Encouraged participation in milieu.
[2022-07-10 07:12] VITALS: BP 109/62; PULSE 85
[2022-07-10] MEDS: VENLAFAXINE HCL ER 150 MG CAP PO SCH (08:05)
[2022-07-10] MEDS: LURASIDONE 20 MG TAB PO SCH (17:32)
--- NOTE | 2022-07-10 18:04 | P.PN ---
Progress Note - Text Progress Note Date: 07/10/22 Interval history: Patient was seen attending group and was directable and agreeable to speak with consumer loan underwriter. She is cooperative but with irritable edge. At this time, patient denies any suicidal or homicidal ideations intent or plan. She denies any auditory or visual hallucinations. Patient denies any side effects from the medications and has been compliant with meds. She prefers to not increase her Latuda today, and insists her mood is "fine". Mental status exam: General Appearance: Patient appears to be stated age, obese female, odd affect. Behavior: No agitated behavior. Patient is calm, cooperative and directable but with slightly irritable edge. Speech: Patient's speech is fluent and non-pressured. Mood/Affect: Mood is improving mildly, affect is congruent and constricted. Suicidality/Homicidality: Patient denies having any suicidal or homicidal ideation intent or plan. Perceptions: Patient denies any auditory or visual hallucinations. Though content/process: There is no evidence of any delusional thought content and thought process is linear and goal-directed. Memory and concentration: AOX3, grossly intact for the purposes of this session Judgment and insight: improving mildly Assessment/Plan: Continue with current diagnosis. Patient continues to meet criteria for inpatient psychiatric admission for symptom stabilization and safety. Patient will be maintained on current psychotropic medication regimen. [place] level ordered for Monday07/11/22. Monitor for medication compliance and for any psychotropic medication side effects. Will continue to monitor ongoing response to treatment. Encouraged participation in milieu.
[2022-07-10] MEDS: LITHIUM CARBONATE 150 MG CAP PO SCH (20:07)
[2022-07-11] MEDS: VENLAFAXINE HCL ER 150 MG CAP PO SCH (08:22)
--- NOTE | 2022-07-11 09:43 | P.DS ---
Providers Date of admission: 07/06/22 21:12 Expected date of discharge: 07/11/22 Attending physician: Azam Caicedo MD Consults: 07/07/22 09:55 Consult Physician Routine Consulting Provider: Clyde Chappell Consult Reason/Comments: H & P Do you want consulting provider notified?: Already Contacted Primary care physician: Ary Martins - Discharge Diagnosis(es) (1) Major depressive disorder without psychotic features Current Visit: Yes Status: Acute Priority: High (2) Anxiety disorder, unspecified Current Visit: Yes Status: Acute Priority: Medium (3) Borderline personality disorder Current Visit: Yes Status: Acute Priority: High Hospital Course: Admission HPI: Admission note was completed by functional tester typewriters "Patient is a 27-year-old female currently lives with her parents in a house and apparently still in college. Patient presented to the hospital yesterday on a petition stating that patient attempted to jump out of a moving car twice and has been speaking about suicidal thoughts with attempt to drink poisonous substances. Patient does have a history of borderline personality disorder depression and anxiety. She was admitted involuntarily last night and able to speak to functional tester typewriters this morning. Patient was fairly irritable and argumentative throughout the entire interview. She made several negative comments towards functional tester typewriters and believes that he was "going to mess up my medications". She claims that she is doing TMS in [place] and had a "negative reaction" and states that she had a "TMS dip" and states "it was making her depression and suicidal thoughts worse. She claims that she has gone a time so far. She states that she is feeling depressed and anxious at this time. She claims that she is also feeling irritable and was brought in by her mother because she is "blowing things out of proportion". She demonstrates fairly poor insight and judgment and poor impulse control. She claims that she has been taking her medications however her lithium level was below 0.2 on admission. She claims that she does have chronic suicidal thoughts and has been having more recently however states that "I'm not going to act on them". She states that her sleep has been on and off appetite has been fair. She was fairly focused on obtaining Xanax and her own medications. Patient denies any homicidal ideations intent or plan. At this time patient denies any auditory or visual hallucinations. Patient denies any flight of ideas racing thoughts and increased in goal directed behavior. Patient admits to using no recreational drugs or cigarettes." Hospital course: Upon admission to the unit patient was directable and agreeable to commence treatment and signed adult voluntary form . Patient soon after became argumentative with the functional tester typewriters and signed AMA for demanding to be released from the hospital. Patient was still agreeable to continue on with treatment in the meantime. Patient got along well with other patients on the unit and followed unit protocol. Patient was compliant with the medications and denied any side effects throughout hospital course. Patient was started on latuda 20 mg at 1800 for mood stabilization. [place] 900 mg daily at bedtime for mood stabilization/suicidal ideations, Effexor 150 mg daily for mood/anxiety. Patient spoke of her stressors and engaged in therapy both group and individual. Patient was also seen by medical team for history and physical exam. Throughout the course of the hospitalization patient gradually improved with regards to mood, anxiety, sleep and returned back to their baseline level of functioning. On the day of discharge patient denied any suicidal or homicidal ideations intent or plan denied any auditory or visual hallucinations. Patient endorsed wanting to live for her health and her family. The patient denied any access to guns or weapons. Patient denied any paranoia and did not endorse any delusions. Patient does not have a significant history of substance abuse and was counseled on abstaining from all substances including alcohol and marijuana. Patient was also counseled on the medications and need for regular compliance and was encouraged to follow-up with their outpatient appointment for mental health and also for primary care. Prior to discharge a family meeting will be arranged by social science research assistant to answer any questions and ensure safety upon discharge. Patient will continue following along with her therapist and providers at [facility]. Mental status exam: General Appearance: Patient appears to be overweight, short hair, stated age is alert, pleasant, and cooperative. Patient is in no acute distress and has improved hygiene and grooming Behavior: Patient is calmly seated without any agitated behavior. Speech: Patient's speech is fluent and nonpressured. Mood/Affect: Patient reports their mood is "good", affect is congruent and constricted Suicidality/Homicidality: Patient denies having any suicidal or homicidal ideation intent or plan. Perceptions: Patient denies any auditory or visual hallucinations. Though content/process: There is no evidence of any delusional thought content and thought process is linear and goal-directed. more future oriented Memory and concentration: AOX3, grossly intact for the purposes of this session. Can spell "WORLD" backwards correctly. Judgment and insight: chronically poor, however has improved with guarded prognosis Impression: Major depressive disorder, without psychotic features Anxiety disorder unspecified Borderline personality disorder Plan: -Continue with discharge today as patient has improved and stabilized psychiatrically and is not currently an imminent threat to herself and/or others. Patient will remain at chronically elevated risk for harm to self and/or others due to her impulsivity and personality disorder. -Continue medications: latuda 20 mg at 1800 hrs. with food for mood stabilization, lithium 900 mg daily at bedtime for mood stabilization/suicidal ideations, Effexor 150 mg daily for mood/anxiety. We'll await patient's lithium level this morning before discharge. -Patient was counseled on the need for medication compliance and appropriate follow-up at mental health and also primary care for medical issues. Patient verbalized understanding and agreed. -Social work to arrange for and conduct family meeting to ensure safety upon discharge and answer any questions/concerns. Social work also to arrange for patients follow up appointments with [facility] for psychiatric care along with follow up with primary care provider. -Patient counseled on abstaining from recreational drugs and marijuana and alcohol. Was informed/educated on the adverse effects on their physical and mental health. Patient verbally agreed and understood. -Patient was instructed to return to the hospital or seek immediate medical care if their psychiatric or medical symptoms do worsen or reoccur. Allergies Allergy/AdvReac Type Severity Reaction Status Date / Time lamotrigine [From Lamictal] AdvReac dizzy/difficult Verified 07/06/22 12:04 standing/neurological symptoms Laboratory Results WBC 13.0 k/uL (3.8-10.6) H 07/06/22 21:31 RBC 4.80 m/uL (3.80-5.40) 07/06/22 21:31 Hgb 14.9 gm/dL (11.4-16.0) 07/06/22 21:31 Hct 45.0 % (34.0-46.0) 07/06/22 21:31 MCV 93.8 fL (80.0-100.0) 07/06/22 21: MCH 31.1 pg (25.0-35.0) 07/06/22 21:31 MCHC 33.2 g/dL (31.0-37.0) 07/06/22 21:31 RDW 12.6 % (11.5-15.5) 07/06/22 21:31 Plt Count 399 k/uL (150-450) 07/06/22 21:31 MPV 7.2 07/06/22 21:31 Neutrophils % 61 % 07/06/22 21:31 Lymphocytes % 31 % 07/06/22 21:31 Monocytes % 5 % 07/06/22 21:31 Eosinophils % 3 % 07/06/22 21:31 Basophils % 1 % 07/06/22 21:31 Neutrophils # 7.9 k/uL (1.3-7.7) H 07/06/22 21:31 Lymphocytes # 4.0 k/uL (1.0-4.8) 07/06/22 21:31 Monocytes # 0.6 k/uL (0-1.0) 07/06/22 21:31 Eosinophils # 0.4 k/uL (0-0.7) 07/06/22 21:31 Basophils # 0.1 k/uL (0-0.2) 07/06/22 21:31 Sodium 141 mmol/L (137-145) 07/06/22 21:31 Potassium 3.8 mmol/L (3.5-5.1) 07/06/22 21:31 Chloride 108 mmol/L (98-107) H 07/06/22 21:31 Carbon Dioxide 18 mmol/L (22-30) L 07/06/22 21:31 Anion Gap 15 mmol/L 07/06/22 21:31 BUN 8 mg/dL (7-17) 07/06/22 21:31 Creatinine 0.67 mg/dL (0.52-1.04) 07/06/22 21:31 Est GFR (CKD-EPI)AfAm >90 (>60 ml/min/1.73 sqM) 07/06/22 21:31 Est GFR (CKD-EPI)NonAf >90 (>60 ml/min/1.73 sqM) 07/06/22 21:31 Glucose 93 mg/dL (74-99) 07/06/22 21:[address] Glu mg/dL 101 07/06/22 21:31 Hemoglobin A1c 5.2 % (0.0-6.0) 07/06/22 21: Calcium 9.6 mg/dL (8.4-10.2) 07/06/22 21:31 Total Bilirubin 0.3 mg/dL (0.2-1.3) 07/06/22 21: Conjugated Bilirubin 0.0 mg/dL (0.0-0.3) 07/06/22 21: Unconjugated Bilirubin 0.1 mg/dL (0.0-1.1) 07/06/22 21: Delta Bilirubin 0.2 mg/dL (0.0-0.2) 07/06/22 21:31 AST 28 U/L (14-36) 07/06/22 21: ALT 37 U/L (4-34) H 07/06/22 21:31 Alkaline Phosphatase 68 U/L (38-126) 07/06/22 21:31 Total Protein 7.0 g/dL (6.3-8.2) 07/06/22 21: Albumin 4.6 g/dL (3.5-5.0) 07/06/22 21:31 Triglycerides 225.00 mg/dL (0.00-149.00) H 07/06/22 21: Cholesterol 172.00 mg/dL (0.00-200.00) 07/06/22 21:31 LDL Cholesterol, Calc 95.1 mg/dL (0.0-131.0) 07/06/22 21: VLDL Cholesterol, Calc 45.00 mg/dL (5.00-40.00) H 07/06/22 21: HDL Cholesterol 31.90 mg/dL (40.00-60.00) L 07/06/22 21:31 Cholesterol/HDL Ratio 5.39 Ratio 07/06/22 21: TSH 2.170 mIU/L (0.465-4.680) 07/06/22 21:31 Urine Color Yellow 07/06/22 16:41 Urine Appearance Clear (Clear) 07/06/22 16:41 Urine pH 6.5 (5.0-8.0) 07/06/22 16:41 Ur Specific [place] 1.018 (1.001-1.035) 07/06/22 16:41 Urine Protein Negative (Negative) 07/06/22 16:41 Urine Glucose (UA) Negative (Negative) 07/06/22 16:41 Urine Ketones Negative (Negative) 07/06/22 16:41 Urine Blood Negative (Negative) 07/06/22 16:41 Urine Nitrite Negative (Negative) 07/06/22 16:41 Urine Bilirubin Negative (Negative) 07/06/22 16:41 Urine Urobilinogen <2.0 mg/dL (<2.0) 07/06/22 16:41 Ur Leukocyte Esterase Negative (Negative) 07/06/22 16:41 Urine HCG, Qual Not Detected (Not Detectd) 07/06/22 16:45 Urine Opiates Screen Not Detected (NotDetected) 07/06/22 Unknown Ur Oxycodone Screen Not Detected (NotDetected) 07/06/22 Unknown Urine Methadone Screen Not Detected (NotDetected) 07/06/22 Unknown Ur Propoxyphene Screen Not Detected (NotDetected) 07/06/22 Unknown Ur Barbiturates Screen Not Detected (NotDetected) 07/06/22 Unknown U Tricyclic Antidepress Not Detected (NotDetected) 07/06/22 Unknown Ur Phencyclidine Scrn Not Detected (NotDetected) 07/06/22 Unknown Ur Amphetamines Screen Not Detected (NotDetected) 07/06/22 Unknown U Methamphetamines Scrn Not Detected (NotDetected) 07/06/22 Unknown U Benzodiazepines Scrn Detected (NotDetected) H 07/06/22 Unknown [place] <0.2 mmol/L 07/06/22 21:31 Urine Cocaine Screen Not Detected (NotDetected) 07/06/22 Unknown U Marijuana (THC) Screen Not Detected (NotDetected) 07/06/22 Unknown Coronavirus (PCR) Not Detected (Not Detectd) 07/06/22 17:51 Vital Signs Temp 97.8 F 07/10/22 07:11 Pulse 85 07/10/22 07:11 Resp 18 07/10/22 07:11 BP 109/62 07/10/22 07:11 Pulse Ox 95 07/06/22 22:12 FiO2 Intake & Output 07/10/22 07/11/22 07/11/22 18:59 06:59 18:59 Weight 117.4 kg Patient Condition at Discharge: Stable Plan - Discharge Summary New Discharge Prescriptions: New Lurasidone [Latuda] 20 mg PO 1800 30 Days tab Continue Spravato 84mg 3 spray NASAL Q14D Medroxyprogesterone Acetate [Depo-Provera] 150 mg IM Q84D Venlafaxine HCl [Effexor XR] 150 mg PO DAILY 30 Days tab Changed [place] Carbonate 900 mg PO HS 30 Days cap Discontinued [place] Carbonate 1,200 mg PO DAILY ALPRAZolam [Xanax] 1 mg PO BID PRN PRN Reason: Anxiety Haloperidol Lactate 1 mg IM DIRECTED PRN PRN Reason: acute psychosis Discharge Medication List Medroxyprogesterone Acetate [Depo-Provera] 150 mg IM Q84D 09/02/21 [History] Spravato 84mg 3 spray NASAL Q14D 09/02/21 [History] [place] Carbonate 900 mg PO HS 30 Days cap 07/11/22 [Rx] Lurasidone [Latuda] 20 mg PO 1800 30 Days tab 07/11/22 [Rx] Venlafaxine HCl [Effexor XR] 150 mg PO DAILY 30 Days tab 07/11/22 [Rx] Follow up Appointment(s)/Referral(s): [facility] [Outside] - 07/15/22 3:30 pm (07/15 @ 15:30 with daniel 07/19 @ 10:45 with Christina fischer ) Ary Martins DO [Primary Care Provider] - 1-2 days Activity/Diet/Wound Care/Special Instructions: Avoid the use of street drugs and alcohol. Take all prescriptions as prescribed. When you are in need of refills on your medications, please contact your medical provider and/or outpatient psychiatrist to have this done. Please go to scheduled outpatient appointment for aftercare treatment. If symptoms return or become worse, call the crisis line at and/or go to the nearest emergency room for evaluation. Discharge Disposition: HOME SELF-CARE
== END 2022-07-11 11:20 | disposition home or self-care (01) | DRG 881 ==
LOC: EC 11:40 → 3MHU 21:12
PROVIDERS: ADMIT Psychiatry & Neurology Psychiatry; ATTEND Psychiatry & Neurology Psychiatry
DX: F32.9 Major depressive disorder, single episode, unspecified (principal); Z68.41 Body mass index [BMI] 40.0-44.9, adult; F84.5 Asperger's syndrome; Z20.822 Contact with and (suspected) exposure to COVID-19; E66.01 Morbid (severe) obesity due to excess calories; G47.00 Insomnia, unspecified; F60.3 Borderline personality disorder; F41.9 Anxiety disorder, unspecified; F43.10 Post-traumatic stress disorder, unspecified; Z79.899 Other long term (current) drug therapy; Z81.8 Family history of other mental and behavioral disorders
CPT/HCPCS: 80053; 80061; 80178; 80306; 81003; 81025; 82075; 82248; 83036; 84443; 85025; 87635; 96372; 99285

== ENCOUNTER 2023-03-28 11:36 | Emergency (ER) | payer MEDICARE, OTHER ==
[2023-03-28 11:47] VITALS: TEMP 98.3
[2023-03-28] MEDS ORDERED: SODIUM CHLORIDE 0.9% 1,000 ML IV STA ×2 (11:58→13:23)
[2023-03-28] MEDS ORDERED: ONDANSETRON 4 MG/2 ML VIAL IVP STA (11:58)
[2023-03-28] MEDS ORDERED: KETOROLAC 15 MG/ML 1 ML VIAL IVP STA (12:00)
--- NOTE | 2023-03-28 12:05 | ED ---
Chest Pain HPI - General Chief Complaint: Chest Pain Stated Complaint: chest pain, vomiting, abd pain Time Seen by Provider: 03/28/23 11:48 Source: patient, RN notes reviewed Mode of arrival: ambulatory Limitations: no limitations - History of Present Illness Initial Comments: This is a 27-year-old female who presents to the emergency department for chest pain. Patient states that this has been an intermittent issue for a couple of weeks and she is scheduled to see a Dr. Villalobos, cardiology, for further evaluation. Denies having any testing up to this point. States that this is left-sided and described as sharp. Denies any shortness of breath. Also denies any personal or family history of cardiac issues. Additionally, states that she is having left upper and left lower quadrant abdominal pain and started throwing up this morning. Reports a history of transient abdominal pain that typically moves around, and believes that this is the cause of this. Denies any fevers, chills, sore throat, cough, dyspnea, palpitations, diarrhea, back pain, or headaches. MD Complaint: chest pain Pain Location: left chest Pain Radiation: none - Related Data Home Medications Medication Instructions Recorded Confirmed Medroxyprogesterone Acetate 150 mg IM Q84D 09/02/21 03/28/23 [Depo-Provera] Spravato 84mg 3 spray EA NOSTRIL Q14D 09/02/21 03/28/23 ALPRAZolam [Xanax] 1 mg PO BID PRN 03/28/23 03/28/23 Diphenoxylate HCl/Atropine 2 tab PO TID PRN 03/28/23 03/28/23 [Lomotil 2.5-0.025 mg Tablet] Famotidine [Pepcid] 20 mg PO BID PRN 03/28/23 03/28/23 Haloperidol Lactate 1 mg IM DIRECTED PRN 03/28/23 03/28/23 [place] Carbonate 1,200 mg PO HS 03/28/23 03/28/23 Ondansetron Odt [Zofran Odt] 8 mg PO Q8HR PRN 03/28/23 03/28/23 Previous Rx's Medication Instructions Recorded Venlafaxine HCl [Effexor XR] 150 mg PO DAILY 30 Days tab 07/11/22 Metoclopramide [Reglan] 10 mg PO Q6H PRN #15 tab 03/28/23 Allergies Allergy/AdvReac Type Severity Reaction Status Date / Time lamotrigine [From Lamictal] AdvReac dizzy/difficult Verified 03/28/23 12:24 standing/neurological symptoms Review of Systems ROS Statement: Those systems with pertinent positive or pertinent negative responses have been documented in the HPI. ROS Other: All systems not noted in ROS Statement are negative. Past Medical History Past Medical History: Seizure Disorder Additional Past Medical History / Comment(s): Asbergers Syndrome; sleep apnea History of Any Multi-Drug Resistant Organisms: None Reported Past Surgical History: No Surgical Hx Reported Past Anesthesia/Blood Transfusion Reactions: No Reported Reaction Past Psychological History: Anxiety, Depression, PTSD Smoking Status: Never smoker Past Alcohol Use History: None Reported Past Drug Use History: None Reported - Past Family History Father Family Medical History: Cancer, CVA/TIA, Myocardial Infarction ([place]) Additional Family Medical History / Comment(s): Father is age 58 and has unknown breast tumor Mother Family Medical History: Diabetes Mellitus Additional Family Medical History / Comment(s): Mother is alive at age 56. Jamin cummins has 2 sisters that are well by no and blind. She does not have any brothers. General Exam Limitations: no limitations General appearance: alert, in no apparent distress Head exam: Present: atraumatic, normocephalic, normal inspection Respiratory exam: Present: normal lung sounds bilaterally. Absent: respiratory distress, wheezes, rales, rhonchi, stridor Cardiovascular Exam: Present: regular rate, normal rhythm, normal heart sounds. Absent: systolic murmur, diastolic murmur, rubs, gallop, clicks GI/Abdominal exam: Present: soft, tenderness (LLQ and LUQ). Absent: distended Neurological exam: Present: alert, oriented X3, CN II-XII intact Psychiatric exam: Present: normal affect, normal mood Skin exam: Present: warm, dry, intact, normal color. Absent: rash Course Vital Signs 03/28/23 03/28/23 03/28/23 11:42 12:22 12:26 Temperature 98.3 F Pulse Rate 93 83 Respiratory 22 20 20 Rate Blood Pressure 139/85 99/74 O2 Sat by Pulse 96 96 Oximetry 03/28/23 15:23 Temperature Pulse Rate 68 Respiratory 16 Rate Blood Pressure 150/80 O2 Sat by Pulse 98 Oximetry Chest Pain MDM - MDM This is a 27-year-old female who presents to the emergency department for chest pain. Was pt. sent in by a medical professional or institution? @ -No Did you speak to anyone other than the patient for history? @ -No Did you review nursing and triage notes? @ -Yes, and I agree, it is accurate with regards to the patient's symptoms. Were old charts reviewed? @ -No Differential Diagnosis? @ -Differential Chest Pain: Stable Angina, Unstable Angina, STEMI, NSTEMI Aortic Dissection, Pneumothorax, Musculoskeletal, Esophageal Spasm GERD, Cholecystitis, Pancreatitis, Zoster, this is not meant to be an all-inclusive list. EKG interpreted by me (3pts min.)? @ -EKG interpreted by me demonstrating the following: Sinus rhythm. Ventricular rate 92 beats per minute, UT interval 128 ms, QRS duration 116 ms, QTC 437 ms. X-rays interpreted by me (1pt min.)? @ -Chest x-ray obtained, my interpretation identifies no localized consolidations or infiltrates. CT interpreted by me (1pt min.)? @ -Computed tomography scan of the abdomen and pelvis obtained. My interpretation identifies no evidence of bowel wall thickening or free air. U/S interpreted by me (1pt. min.)? @ -Not obtained What testing was considered but not performed? (CT, X-rays, U/S, labs)? Why? @ -None What meds were considered but not given? Why? @ -None Did you discuss the management of the patient with other professionals? @ -No Did you reconcile home meds? @ -No Was smoking cessation discussed for >3mins.? @ -No Was critical care preformed (if so, how long)? @ -No Were there social determinants of health that impacted care today? How? (Homelessness, low income, unemployed, alcoholism, drug addiction, transportation, low edu. Level, literacy, decrease access to med. care, longterm, rehab)? @ -No Was there de-escalation of care discussed even if they declined? (Discuss DNR or withdrawal of care, Hospice)? @ -No What co-morbidities impacted this encounter? (DM, HTN, Smoking, COPD, CAD, Cancer, CVA, Hep., AIDS, mental health diagnosis, sleep apnea, morbid obesity)? @ -Morbid obesity Was patient admitted / discharged? @ -Discharged. Lab work obtained revealing leukocytosis and elevated liver enzy mes. Liver enzymes have been elevated in the past, however these are elevated more so than they have been before. Chest x-ray reveals no acute findings. Given the leukocytosis with abdominal pain, computed tomography scan of the abdomen and pelvis was obtained, which also revealed no acute findings. She did have minor improvement with IV fluids, Toradol, and Zofran. I offered additional medication to manage the pain and nausea, however the patient declined. Advised that at this point, there is no clear cause for her symptoms. She is instructed to follow-up with Dr. Villalobos, cardiology, as scheduled for further evaluation of ongoing chest pain. Rx for Reglan provided for additional nausea management. She has Zofran at home, but states that it is not always effective. She will otherwise follow up with her PCP for reevaluation of ongoing symptoms. Undiagnosed new problem with uncertain prognosis? @ -None Drug Therapy requiring intensive monitoring for toxicity (Heparin, Nitro, Insulin, Cardizem)? @ -None Were any procedures done? @ -None Diagnosis/symptom? @ -Atypical chest pain, abdominal pain Acute, or Chronic, or Acute on Chronic? @ -Acute Uncomplicated (without systemic symptoms) or Complicated (systemic symptoms)? @ -Uncomplicated Side effects of treatment? @ -None Exacerbation, Progression, or Severe Exacerbation] @ -Not applicable Poses a threat to life or bodily function? @ -No Return precautions reviewed in depth, the patient is instructed to return to the emergency department with any new, worsening, or concerning symptoms. Patient verbalized understanding. This case was discussed in detail with the attending ED physician, Dr. Krishnamurthy. Presentation, findings, and treatment plan discussed in detail as well. Disposition Clinical Impression: Atypical chest pain, Abdominal pain Disposition: HOME SELF-CARE Instructions (If sedation given, give patient instructions): Abdominal Pain (ED), Noncardiac Chest Pain (ED) Additional Instructions: Return to the emergency department with any new, worsening, or concerning symptoms. You can alternate with the Zofran and Reglan if needed for nausea and vomiting. Continue to take Tylenol as needed for the pain. Follow-up with Dr. Villalobos as scheduled. Follow up with your primary care provider in 1-2 days. Prescriptions: Metoclopramide [Reglan] 10 mg PO Q6H PRN #15 tab PRN Reason: Nausea And Vomiting Is patient prescribed a controlled substance at d/c from ED?: No Referrals: Ary Martins DO [Primary Care Provider] - 1-2 days
[2023-03-28 12:24] LABS: Basophils % (A) 0 %; Eosinophils # (A) 0.1 k/uL (0-0.7); Eosinophils % (A) 1 %; HCT 43.1 % (34.0-46.0); Lymphocytes # (A) 2.1 k/uL (1.0-4.8); Lymphocytes % (A) 15 %; MCHC 34.7 g/dL (31.0-37.0); MCV 89.3 fL (80.0-100.0); Mean Platelet Volume 6.9; Monocytes # (A) 0.3 k/uL (0-1.0); Monocytes % (A) 2 %; Neutrophils # (A) 11.5 k/uL (1.3-7.7); Neutrophils % (A) 81 %; Platelet Count 340 k/uL (150-450); RBC 4.83 m/uL (3.80-5.40); RDW 14.6 % (11.5-15.5); WBC 14.1 k/uL (3.8-10.6)
[2023-03-28 12:39] LABS: Partial Thromboplastin Time 22.6 sec (22.0-30.0); Prothrombin Time 10.4 sec (9.0-12.0)
[2023-03-28 12:40] LABS: ALT 65 U/L (4-34); AST 52 U/L (14-36); African American GFR (CKD) >90 (>60 ml/min/1.73 sqM); Albumin 4.6 g/dL (3.5-5.0); Alkaline Phosphatase 77 U/L (38-126); Amylase 59 U/L (30-110); Anion Gap 11 mmol/L; Blood Urea Nitrogen 7 mg/dL (7-17); Calcium 9.5 mg/dL (8.4-10.2); Carbon Dioxide 23 mmol/L (22-30); Chloride 107 mmol/L (98-107); Glucose 135 mg/dL (74-99); HCG,Qualitative Serum Not Detected; Lipase 49 U/L (23-300); Magnesium 2.3 mg/dL (1.6-2.3); Non-African American GFR(CKD) >90 (>60 ml/min/1.73 sqM); Potassium 3.2 mmol/L (3.5-5.1); Sodium 141 mmol/L (137-145); Total Bilirubin 1.1 mg/dL (0.2-1.3); Total Protein 7.1 g/dL (6.3-8.2)
[2023-03-28] MEDS ORDERED: METOCLOPRAMIDE 5 MG/ML 2 ML VIAL IVP STA (12:59)
[2023-03-28] MEDS ORDERED: FAMOTIDINE 20 MG/2 ML VIAL IV STA (12:59)
[2023-03-28] MEDS ORDERED: HYDROmorphone 0.5 MG/0.5 ML SYRINGE IVP STA (12:59)
--- NOTE | 2023-03-28 13:03 | XR ---
EXAMINATION TYPE: XR chest 2V DATE OF EXAM: 03/28/2023 COMPARISON: None HISTORY: 27-year-old female with chest pain and shortness of breath TECHNIQUE: AP and lateral views FINDINGS: The cardiomediastinal silhouette, aorta, and pulmonary vasculature are within normal limits. Somewhat low lung volumes. Otherwise, lungs and pleural spaces are clear. IMPRESSION: Some hypoventilatory changes. Otherwise, no acute cardiopulmonary process.
--- NOTE | 2023-03-28 14:03 | CT ---
EXAMINATION TYPE: CT abdomen pelvis w con CT DLP: 2950.4. mGycm, Automated exposure control for dose reduction was used. DATE OF EXAM: 03/28/2023 1:48 PM COMPARISON: None. CLINICAL INDICATION:Female, 27 years old with history of Left sided abdominal pain; Left sided abdomi nal and chest pain. TECHNIQUE: Axial CT of the abdomen and pelvis. Sagittal and coronal reformats were created on a [employer] workstation. Contrast used:100 mL of Isovue 300 with IV Contrast, Oral contrast used: without Oral Contrast FINDINGS: LOWER CHEST: Unremarkable ABDOMEN LIVER: Diffusely hypoattenuating parenchyma. GALLBLADDER AND BILE DUCTS: The gallbladder is surgically absent. PANCREAS: Unremarkable. SPLEEN: Small splenule is present. ADRENAL GLANDS: Unremarkable. KIDNEYS AND URETERS: No evidence of hydronephrosis or renal calculus. The ureters are unremarkable. PELVIS BLADDER: Mild circumferential wall thickening. REPRODUCTIVE: Unremarkable. ABDOMEN & PELVIS STOMACH AND BOWEL: No evidence of bowel obstruction. The appendix is normal. Relative nondistention o f the colon and sigmoid colon. PERITONEUM/RETROPERITONEUM: No evidence of pneumoperitoneum or free fluid. VASCULATURE: No evidence of aortic aneurysm. MUSCULOSKELETAL: No acute osseous abnormalities LYMPH NODES: No gross evidence for lymphadenopathy. SOFT TISSUE/ABDOMINAL WALL: Bilateral fat-containing ventral hernias. IMPRESSION: 1. No evidence for acute abdominal process to explain the patient's pain. 2. Mild circumferential wall thickening of the bladder which could be due to underdistention. Correl ate with urinalysis. 3. Hepatic steatosis. 4. Bilateral fat-containing inguinal hernias.
[2023-03-28] MEDS ORDERED: ACET/COD 300 MG/30 MG STARTER PACK 6 TAB BTL PO STA (14:28)
[2023-03-28 15:25] VITALS: BP 150/80; PULSE 68; RESP 16
== END 2023-03-28 15:26 | disposition home or self-care (01) ==
LOC: EC 11:36
DX: R07.89 Other chest pain (principal); K40.20 Bilateral inguinal hernia, without obstruction or gangrene, not specified as recurrent; K76.0 Fatty (change of) liver, not elsewhere classified; F41.9 Anxiety disorder, unspecified; F32.A Depression, unspecified; Z79.899 Other long term (current) drug therapy; Z88.8 Allergy status to other drugs, medicaments and biological substances
CPT/HCPCS: 36415; 93005; 85379; 80053; 84443; 82150; 83690; 83735; 84484; 85025; 85610; 85730; 84703; 71046; 74177; 99285; 96374; 96375; 96361 ×3; J2405; J1885; Q9967

== ENCOUNTER 2024-03-27 19:35 | Inpatient (IN) | payer MEDICARE, MEDICAID ==
--- NOTE | 2024-03-27 20:12 | ED ---
General Adult HPI - General Chief complaint: Psychiatric Symptoms Stated complaint: Mental Health Time Seen by Provider: 03/27/24 20:06 Source: patient, family, EMS, RN notes reviewed Mode of arrival: EMS Limitations: no limitations - History of Present Illness Initial comments: 28 year old female presents to the emergency department for mental health e valuation. Patient reports that she currently has suicidal ideation. She was petitioned by her father. Her father states that she told the patrol police sergeant that he "should pull his gun out and shoot her." According to father, she has not been taking her medications for her mental health. Denies homicidal ideation. She does report a history of endometriosis and typically has abdominal pain and nausea multiple days a month. She does report that she is having these symptoms currently. This has been on and off for 6 years and she follows with gynecology for this. No change in character of the pain. - Related Data Home Medications Medication Instructions Recorded Confirmed Medroxyprogesterone Acetate 150 mg IM Q84D 09/02/21 03/28/23 [Depo-Provera] Spravato 84mg 3 spray EA NOSTRIL Q14D 09/02/21 03/28/23 ALPRAZolam [Xanax] 1 mg PO BID PRN 03/28/23 03/28/23 Diphenoxylate HCl/Atropine 2 tab PO TID PRN 03/28/23 03/28/23 [Lomotil 2.5-0.025 mg Tablet] Famotidine [Pepcid] 20 mg PO BID PRN 03/28/23 03/28/23 Haloperidol Lactate 1 mg IM DIRECTED PRN 03/28/23 03/28/23 [place] Carbonate 1,200 mg PO HS 03/28/23 03/28/23 Ondansetron Odt [Zofran Odt] 8 mg PO Q8HR PRN 03/28/23 03/28/23 Previous Rx's Medication Instructions Recorded Venlafaxine HCl [Effexor XR] 150 mg PO DAILY 30 Days tab 07/11/22 Metoclopramide [Reglan] 10 mg PO Q6H PRN #15 tab 03/28/23 Allergies Allergy/AdvReac Type Severity Reaction Status Date / Time lamotrigine [From Lamictal] AdvReac dizzy/difficult Verified 07/23/23 18:41 standing/neurological symptoms Review of Systems ROS Statement: Those systems with pertinent positive or pertinent negative responses have been documented in the HPI. ROS Other: All systems not noted in ROS Statement are negative. Past Medical History Past Medical History: Seizure Disorder Additional Past Medical History / Comment(s): Asbergers Syndrome; sleep apnea History of Any Multi-Drug Resistant Organisms: None Reported Past Surgical History: No Surgical Hx Reported Past Anesthesia/Blood Transfusion Reactions: No Reported Reaction Past Psychological History: Anxiety, Depression, PTSD Smoking Status: Never smoker Past Alcohol Use History: None Reported Past Drug Use History: None Reported - Past Family History Father Family Medical History: Cancer, CVA/TIA, Myocardial Infarction ([place]) Additional Family Medical History / Comment(s): Father is age 58 and has unknown breast tumor Mother Family Medical History: Diabetes Mellitus Additional Family Medical History / Comment(s): Mother is alive at age 56. Patient has 2 sisters that are well by no and blind. She does not have any brothers. General Exam Limitations: no limitations General appearance: alert, in no apparent distress Head exam: Present: atraumatic, normocephalic, normal inspection Eye exam: Present: normal appearance, PERRL, EOMI. Absent: scleral icterus, conjunctival injection, periorbital swelling ENT exam: Present: normal exam, mucous membranes moist Neck exam: Present: normal inspection. Absent: tenderness, meningismus, lymphadenopathy Respiratory exam: Present: normal lung sounds bilaterally. Absent: respiratory distress, wheezes, rales, rhonchi, stridor Cardiovascular Exam: Present: regular rate, normal rhythm, normal heart sounds. Absent: systolic murmur, diastolic murmur, rubs, gallop, clicks GI/Abdominal exam: Present: soft, normal bowel sounds. Absent: distended, tenderness, guarding, rebound, rigid Extremities exam: Present: normal inspection, full ROM, normal capillary refill. Absent: tenderness, pedal edema, joint swelling, calf tenderness Neurological exam: Present: alert, oriented X3 Psychiatric exam: Present: anxious Skin exam: Present: warm, dry, intact, normal color. Absent: rash Course Vital Signs 03/27/24 19:37 Temperature 98.6 F Pulse Rate 94 Respiratory 20 Rate Blood Pressure 124/83 O2 Sat by Pulse 97 Oximetry Procedures - Restraint - Face to Face Restraint Occurrence 1 Patient's Immediate Situation: Endangers others' safety, Endangers staff safety, Violent behavior Patient's Reaction to the Intervention: Anxious Patient's Medical & Behavioral Condition: Awake, Alert, Anxious, Agitated, Suicidal thoughts Need to Continue or Terminate Restraint or Seclusion: Continue Face to Face Eval of Restraint Date: 03/27/24 Face to Face Eval of Restraint Time: 19:50 Medical Decision Making - Medical Decision Making Was pt. sent in by a medical professional or institution (, PA, MOTHER TESTER, urgent care, hospital, or long-term...) When possible be specific @ -No Did you speak to anyone other than the patient for history (EMS, parent, family, police, friend...)? What history was obtained from this source @ -Father provided some of the history for this patient Did you review nursing and triage notes (agree or disagree)? Why? @ -I reviewed and agree with nursing and triage notes Were old charts reviewed (outside hosp., previous admission, EMS record, old EKG, old radiological studies, urgent care reports/EKG's, long-term records)? Report findings @ -No old charts were reviewed Differential Diagnosis (chest pain, altered mental status, abdominal pain women, abdominal pain men, vaginal bleeding, weakness, fever, dyspnea, syncope, headache, dizziness, GI bleed, back pain, seizure, CVA, palpatations, mental health, musculoskeletal)? @ -Differential Mental Health Depression, anxiety, bipolar, psychosis, schizophrenia, borderline personality, situational depression, adjustment disorder, behavioral disorder, brain tumor, malingering, substance abuse, encephalopathy, medication reaction, dementia, hypothyroidism, degenerative neurologic disorder, lupus.... This is not meant to be all-inclusive list EKG interpreted by me (3pts min.). @ -None X-rays interpreted by me (1pt min.). @ -None done CT interpreted by me (1pt min.). @ -None done U/S interpreted by me (1pt. min.). @ -None done What testing was considered but not performed or refused? (CT, X-rays, U/S, labs)? Why? @ -None What meds were considered but not given or refused? Why? @ -None Did you discuss the management of the patient with other professionals (professionals i.e. , PA, MOTHER TESTER, lab, RT, psych nurse, social media community manager, rug drying machine operator, teacher, special weapons unit officer, pillowcase sewer)? Give summary @ -Patient evaluated by EPS. Recommending inpatient treatment. Was smoking cessation discussed for >3mins.? @ -No Was critical care preformed (if so, how long)? @ -No Were there social determinants of health that impacted care today? How? (Homelessness, low income, unemployed, alcoholism, drug addiction, transportation, low edu. Level, literacy, decrease access to med. care, fdc, rehab)? @ -No Was there de-escalation of care discussed even if they declined (Discuss DNR or withdrawal of care, Hospice)? DNR status @ -No What co-morbidities impacted this encounter? (DM, HTN, Smoking, COPD, CAD, Cancer, CVA, ARF, Chemo, Hep., AIDS, mental health diagnosis, sleep apnea, morbid obesity)? @ -None Was patient admitted / discharged? Hospital course, mention meds given and route, prescriptions, significant lab abnormalities, going to OR and other pertinent info. @ -Admitted. Patient presented for mental health evaluation. She admits to suicidal ideation. Patient was placed in restraints for violence toward staff members. Patient cooperative on my evaluation. Patient complains of abdominal discomfort which for her with her endometriosis. No new complaints. Patient therefore cleared medically. Restraints removed as patient being cooperative. Patient evaluated by EPS. Recommending inpatient treatment. Undiagnosed new problem with uncertain prognosis? @ -No Drug Therapy requiring intensive monitoring for toxicity (Heparin, Nitro, Insulin, Cardizem)? @ -No Were any procedures done? @ -No Diagnosis/symptom? @ -Suicidal ideation Acute, or Chronic, or Acute on Chronic? @ -acute Uncomplicated (without systemic symptoms) or Complicated (systemic symptoms)? @ -uncomplicated Side effects of treatment? @ -No Exacerbation, Progression, or Severe Exacerbation? @ -No Poses a threat to life or bodily function? How? (Chest pain, [place], [place], pneumonia, PE, COPD, DKA, ARF, appy, cholecystitis, CVA, Diverticulitis, Homicidal, Suicidal, threat to staff... and all critical care pts) @ -No - Lab Data Result diagrams: 03/29/24 07:57 03/29/24 07:57 Lab Results 03/27/24 03/27/24 03/27/24 Range/Units 21:31 21:31 23:08 Urine Color Yellow Urine Appearance Cloudy H (Clear) Urine pH 7.0 (5.0-8.0) Ur Specific [place] 1.018 (1.001-1.035) Urine Protein Trace H (Negative) Urine Glucose (UA) Negative (Negative) Urine Ketones Negative (Negative) Urine Blood Negative (Negative) Urine Nitrite Negative (Negative) Urine Bilirubin Negative (Negative) Urine Urobilinogen 2.0 (<2.0) mg/dL Ur Leukocyte Esterase Small H (Negative) Urine RBC 2 (0-5) /hpf Urine WBC 6 H (0-5) /hpf Ur Squamous Epith Cells 17 H (0-4) /hpf Urine Bacteria Rare H (None) /hpf Cellular Casts 4 (0) /lpf Hyaline Casts 1 (0-2) /lpf Urine Mucus Rare H (None) /hpf Urine HCG, Qual Not Detected (Not Detectd) Urine Opiates Screen Not Detected (NotDetected) Ur Oxycodone Screen Not Detected (NotDetected) Urine Methadone Screen Not Detected (NotDetected) Ur Barbiturates Screen Not Detected (NotDetected) U Tricyclic Antidepress Not Detected (NotDetected) Ur Phencyclidine Scrn Not Detected (NotDetected) Ur Amphetamines Screen Not Detected (NotDetected) U Methamphetamines Scrn Not Detected (NotDetected) U Benzodiazepines Scrn Detected H (NotDetected) Urine Cocaine Screen Not Detected (NotDetected) U Marijuana (THC) Screen Detected H (NotDetected) SARS-CoV-2 (PCR) Not Detected (Not Detectd) Disposition Clinical Impression: Suicidal ideation Disposition: TRANSFER TO PSYCH HOSP/UNIT Condition: Stable Is patient prescribed a controlled substance at d/c from ED?: No
[2024-03-27 22:09] LABS: Appearance,Urine Cloudy (Clear); Bacteria,Urine Rare /hpf; Bilirubin,Urine Negative (Negative); Blood,Urine Negative (Negative); Cellular Casts,Urine 4 /lpf (0); Color,Urine Yellow; Glucose,Urine (UA) Negative (Negative); Hyaline Casts,Urine 1 /lpf (0-2); Ketones,Urine Negative (Negative); Leukocyte Esterase,Urine Small (Negative); Mucus,Urine Rare /hpf; Nitrite,Urine Negative (Negative); Protein,Urine Trace (Negative); RBC,Urine 2 /hpf (0-5); Specific Gravity,Urine 1.018 (1.001-1.035); Squamous Epithelial Cell,Urine 17 /hpf (0-4); WBC,Urine 6 /hpf (0-5)
[2024-03-27 22:24] LABS: Amphetamine Screen,Urine Not Detected (NotDetected); Barbiturate Screen,Urine Not Detected (NotDetected); Benzodiazepines Screen,Urine Detected (NotDetected); Cocaine Screen,Urine Not Detected (NotDetected); Methadone Screen, Urine Not Detected (NotDetected); Opiate Screen,Urine Not Detected (NotDetected); Oxycodone Screen, Urine Not Detected (NotDetected); Phencyclidine Screen,Urine Not Detected (NotDetected); Tricyclic Antidepressant,Urine Not Detected (NotDetected); Urn Cannabinoid Scrn Detected (NotDetected)
[2024-03-28] MEDS ORDERED: MAGNESIUM HYDROXIDE 2,400 MG/30 ML CUP PO PRN (00:20)
[2024-03-28] MEDS ORDERED: hydrOXYzine HCL 50 MG/ML 1 ML VIAL IM PRN (00:20)
[2024-03-28] MEDS ORDERED: MAG HYDROX/AL HYDROX/SIMETH 355 ML BOTTLE PO PRN (00:20)
[2024-03-28] MEDS: ONDANSETRON ODT 8 MG TAB.RAPDIS PO PRN (08:15)
[2024-03-28] MEDS: NICOTINE 14MG/24HR PATCH TRANSDERM SCH (08:15)
[2024-03-28] MEDS: ACETAMINOPHEN TAB 325 MG TAB PO PRN (08:20)
[2024-03-28] MEDS: METOCLOPRAMIDE 10 MG TAB PO PRN (12:09)
--- NOTE | 2024-03-28 17:16 | P.HP ---
Psychiatric H&P - . H&P Date: 03/28/24 History & Physical: Allergies Allergy/AdvReac Type Severity Reaction Status Date / Time lamotrigine [From Lamictal] AdvReac dizzy/difficult Verified 07/23/23 18:41 standing/neurological symptoms Vital Signs Temp 98.1 F 03/28/24 02:00 Pulse 91 03/28/24 02:00 Resp 20 03/28/24 02:00 BP 140/93 03/28/24 02:00 Pulse Ox 98 03/28/24 02:00 FiO2 Intake & Output 03/27/24 03/28/24 03/28/24 18:59 06:59 18:59 Weight 117.084 kg Laboratory Last Values Urine Color Yellow 03/27/24 21: Urine Appearance Cloudy (Clear) H 03/27/24 21: Urine pH 7.0 (5.0-8.0) 03/27/24 21: Ur Specific [place] 1.018 (1.001-1.035) 03/27/24 21: Urine Protein Trace (Negative) H 03/27/24 21:31 Urine Glucose (UA) Negative (Negative) 03/27/24 21: Urine Ketones Negative (Negative) 03/27/24 21: Urine Blood Negative (Negative) 03/27/24 21: Urine Nitrite Negative (Negative) 03/27/24 21: Urine Bilirubin Negative (Negative) 03/27/24 21: Urine Urobilinogen 2.0 mg/dL (<2.0) 03/27/24 21:31 Ur Leukocyte Esterase Small (Negative) H 03/27/24 21: Urine RBC 2 /hpf (0-5) 03/27/24 21:31 Urine WBC 6 /hpf (0-5) H 03/27/24 21:31 Ur Squamous Epith Cells 17 /hpf (0-4) H 03/27/24 21: Urine Bacteria Rare /hpf (None) H 03/27/24 21: Cellular Casts 4 /lpf (0) 03/27/24 21: Hyaline Casts 1 /lpf (0-2) 03/27/24 21: Urine Mucus Rare /hpf (None) H 03/27/24 21: Urine HCG, Qual Not Detected (Not Detectd) 03/27/24 21:31 Urine Opiates Screen Not Detected (NotDetected) 03/27/24 21:31 Ur Oxycodone Screen Not Detected (NotDetected) 03/27/24 21:31 Urine Methadone Screen Not Detected (NotDetected) 03/27/24 21:31 Ur Barbiturates Screen Not Detected (NotDetected) 03/27/24 21:31 U Tricyclic Antidepress Not Detected (NotDetected) 03/27/24 21: Ur Phencyclidine Scrn Not Detected (NotDetected) 03/27/24 21:31 Ur Amphetamines Screen Not Detected (NotDetected) 03/27/24 21:31 U Methamphetamines Scrn Not Detected (NotDetected) 03/27/24 21:31 U Benzodiazepines Scrn Detected (NotDetected) H 03/27/24 21:31 Urine Cocaine Screen Not Detected (NotDetected) 03/27/24 21:31 U Marijuana (THC) Screen Detected (NotDetected) H 03/27/24 21:31 SARS-CoV-2 (PCR) Not Detected (Not Detectd) 03/27/24 23:08 Psychiatric Evaluation Identifying Data: Ms. Castro, is a 29 years old, single W. female, who lives in [place], [place] with her parents. Chief Complaint: I burnt myself out of frustration and anger not due to depression. History of Psychiatric Illness- The patient noted that she burnt her foot due to severe pain and feeling overwhelmed with her upcoming surgery for Endometrioses in mid-April,. She stated, depression was not the catalyst for this act. She stated, I was not suicidal. The patient noted that she is not feeling depressed at this time. She has been prescribed Li but she is not taking it. She states that she cannot hold it. Her blood levels were very low. Her depressive symptomatology consists of feeling sad, loss of motivation, loss of interest, anxiety, feelings of worthlessness, hopelessness, and suicidal ideations. The patient is on Sparvato for depression. She will take her next treatment after discharge. The patient noted that she has suffered from depression since age 17. She has had 4 admissions since then. Her two admissions were for depression with suicidal thoughts and two for self-harm without suicidal ideations or thoughts. She gets her out-pt treatment at [facility]. Past Psychiatric History: As stated above. Leading questions: The patient admitted to Depression and Anxiety. Denied SI or HI. Denied symptoms consistent with psychosis Drugs and alcohol history: Denied Tobacco use: Denied Past Medical history: Family History of Psychiatric Disorder: Her two paternal uncles have depression and two aunt suffer from depression. Social History and Family History: The patient was born and raised in [place], [place]. She grew-up with her two sisters. She finished GED. Her longest job was in [employer]. She is on SSI. OTC: Tylenol. Allergies: Lamictal Objective: MSE: Alert and attentive. Orientation times three Dressed and Groomed: Appropriately. Pleasant and cooperative. Psychomotor Activity: Normal. Speech: Normal in tone, quality, and quantity. Mood: frustrated and angry. Affect: Appropriate to the mood. SI or HI: None. Perceptual disturbance: None. Thought Content: No paranoia or other delusional thinking noted. Thought Process: Normal. Cognition: Intact Judgment and Insight: Good AIMS: Normal Labs: Available labs reviewed. Diagnosis: Plan and Recommendations: Continue current Medications. Monitor MS and side effects of medications and adjust medications accordingly. Provide supportive psychotherapy and psychoeducation. The patient to see a therapist on a regular basis once a week/ attend houser [facility]. CBC with Diff, CMP, TSH, Lipid Profile, HbA1c, EKG, Test ordered. Medication Consent with explanation of risk/benefits and side effects: Explained and obtained.
--- NOTE | 2024-03-28 19:21 | P.CONS ---
History of Present Illness - Reason for Consult Consult date: 03/28/24 Medical management Requesting physician: Demetrius Bashir - Chief Complaint Depressed - History of Present Illness This is a 28-year-old patient, follows with Dr. Ary Martins. Longstanding history of depression. She is also on medical issues. She has had deep pelvic pain. She has seen to butcher fish. She is also seen a pelvic parquet floor layer. Has been diagnosed endometriosis. Surgery type unknown has been scheduled for next month. She also has episodes of vomiting. Has seen Dr. El Villalobos/[facility] in the office. Used to vomits several times a week. Diagnosis not known. When she started taking marijuana Gummies with some help. Now down to 4 or 5 times a month. In the last 3 days patient again started vomiting. Really did not want to come down to the ER. And became stressed about it. Patient was specialization and sent down to the hospital. Patient also has irregular bowel pattern. Sometimes constipation sometimes loose stools. Does not sleep too well. Patient oftentimes will have liquids. Review of systems: GEN.: Tired EYES: None HEENT: None NECK: None RESPIRATORY: None CARDIOVASCULAR: None GASTROINTESTINAL: As above e GENITOURINARY: Patient have occasional spotting e MUSCULOSKELETAL: None LYMPHATICS: None HEMATOLOGICAL: None PSYCHIATRY: None NEUROLOGICAL: None Social history: Patient lives with her parents. Not employed. Does marijuana Gummies for nausea vomiting. Physical examination: VITAL SIGNS: 98.1, 91, 20, 140/93, 98% room air GENERAL: BMI 40.4, sitting up. In chair EYES: Pupils equal. Conjunctiva mamie l. HEENT: External appearance of nose and ears normal, oral cavity grossly normal. NECK: JVD not raised; masses not palpable. HEART: First and second heart sounds are normal; no edema. LUNGS: Respiratory rate normal; clear to auscultation. ABDOMEN: Soft, nontender, liver spleen not palpable, no masses palpable. PSYCH: [Alert and oriented x3; mood and affect a bit anxious l. MUSCULOSKELETAL:No Clubbing/cyanosis;muscles-grossly intact NEUROLOGICAL: Cranial nerves grossly intact; no facial asymmetry, power and sensation grossly intact. 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 Urine drug screen: Benzodiazepine, marijuana detected: Assessment and plan: -Endometriosis. Patient has been seen by 2 butcher fish. 1 pelvic parquet floor layer. Patient is due for surgical intervention next month. Exact type unknown -Insomnia secondary to depression and anxiety Hopefully will do better with change in psychiatry medications -GERD Add Tums. Stop Motrin. Protonix -Possible gastric spasms Try Bentyl for 24 hours -Morbid obesity. BMI 40.4 Weight loss measures Diet was discussed with the patient. Will keep on a soft diet. Patient to follow-up with GI and gynecology upon discharge Thank you Dr. Bashir Past Medical History Past Medical History: Seizure Disorder Additional Past Medical History / Comment(s): Asbergers Syndrome; sleep apnea. Endometriosis History of Any Multi-Drug Resistant Organisms: None Reported Past Surgical History: No Surgical Hx Reported Past Anesthesia/Blood Transfusion Reactions: No Reported Reaction Smoking Status: Never smoker - Past Family History Father Family Medical History: Cancer, CVA/TIA, Myocardial Infarction ([place]) Additional Family Medical History / Comment(s): Father is age 58 and has unknown breast tumor Mother Family Medical History: Diabetes Mellitus Additional Family Medical History / Comment(s): Mother is alive at age 56. Patient has 2 sisters that are well by no and blind. She does not have any brothers. Medications and Allergies Home Medications Medication Instructions Recorded Confirmed Type Medroxyprogesterone Acetate 150 mg IM Q84D 09/02/21 03/28/23 History [Depo-Provera] Spravato 84mg 3 spray EA NOSTRIL Q14D 09/02/21 03/28/23 History Venlafaxine HCl [Effexor XR] 150 mg PO DAILY 30 Days tab 07/11/22 03/28/23 Rx ALPRAZolam [Xanax] 1 mg PO BID PRN 03/28/23 03/28/23 History Diphenoxylate HCl/Atropine 2 tab PO TID PRN 03/28/23 03/28/23 History [Lomotil 2.5-0.025 mg Tablet] Famotidine [Pepcid] 20 mg PO BID PRN 03/28/23 03/28/23 History Haloperidol Lactate 1 mg IM DIRECTED PRN 03/28/23 03/28/23 History [place] Carbonate 1,200 mg PO HS 03/28/23 03/28/23 History Metoclopramide [Reglan] 10 mg PO Q6H PRN #15 tab 03/28/23 Rx Ondansetron Odt [Zofran Odt] 8 mg PO Q8HR PRN 03/28/23 03/28/23 History Allergies Allergy/AdvReac Type Severity Reaction Status Date / Time lamotrigine [From Lamictal] AdvReac dizzy/difficult Verified 07/23/23 18:41 standing/neurological symptoms Physical Exam Vitals: Vital Signs Temp Pulse Pulse Resp BP BP Pulse Ox 03/28/24 02:00 98.1 F 91 20 140/93 98 03/27/24 19:37 98.6 F 94 20 124/83 97 Intake and Output 03/27/24 03/28/24 03/28/24 22:59 06:59 14:59 Other: Weight 113.398 kg 117.084 kg Results Labs: Abnormal Lab Results - Last 24 Hours (Table) 03/27/24 Range/Units 21:31 Urine Appearance Cloudy H (Clear) Urine Protein Trace H (Negative) Ur Leukocyte Esterase Small H (Negative) Urine WBC 6 H (0-5) /hpf Ur Squamous Epith Cells 17 H (0-4) /hpf Urine Bacteria Rare H (None) /hpf Urine Mucus Rare H (None) /hpf U Benzodiazepines Scrn Detected H (NotDetected) U Marijuana (THC) Screen Detected H (NotDetected)
[2024-03-28] MEDS: CALCIUM CARBONATE 500 MG CHEWABLE PO SCH (20:55)
[2024-03-28] MEDS: DICYCLOMINE 10 MG CAP PO SCH (23:42)
[2024-03-29] MEDS: IBUPROFEN 600 MG TAB PO PRN (00:34)
[2024-03-29] MEDS: PANTOPRAZOLE 40 MG TABLET PO STA (01:44)
[2024-03-29] MEDS: ONDANSETRON ODT 4 MG TAB PO PRN (05:10)
[2024-03-29 09:15] LABS: Basophils % (A) 0 %; Eosinophils # (A) 0.1 k/uL (0-0.7); Eosinophils % (A) 1 %; HCT 40.5 % (34.0-46.0); HGB 14.5 gm/dL (11.4-16.0); Lymphocytes # (A) 2.5 k/uL (1.0-4.8); Lymphocytes % (A) 24 %; MCH 32.2 pg (25.0-35.0); MCHC 35.7 g/dL (31.0-37.0); MCV 90.2 fL (80.0-100.0); Mean Platelet Volume 7.7; Monocytes # (A) 0.5 k/uL (0-1.0); Monocytes % (A) 5 %; Neutrophils # (A) 7.5 k/uL (1.3-7.7); Neutrophils % (A) 70 %; Platelet Count 239 k/uL (150-450); RBC 4.49 m/uL (3.80-5.40); RDW 13.5 % (11.5-15.5); WBC 10.7 k/uL (3.8-10.6)
[2024-03-29 09:22] LABS: ALT 37 U/L (4-34); AST 30 U/L (14-36); African American GFR (CKD) >90 (>60 ml/min/1.73 sqM); Albumin 4.3 g/dL (3.5-5.0); Alkaline Phosphatase 66 U/L (38-126); Anion Gap 8 mmol/L; Blood Urea Nitrogen 6 mg/dL (7-17); Calcium 9.7 mg/dL (8.4-10.2); Carbon Dioxide 25 mmol/L (22-30); Chloride 109 mmol/L (98-107); Glucose 89 mg/dL (74-99); Non-African American GFR(CKD) 90 (>60 ml/min/1.73 sqM); Potassium 3.5 mmol/L (3.5-5.1); Sodium 142 mmol/L (137-145); Total Bilirubin 1.5 mg/dL (0.2-1.3); Total Protein 6.6 g/dL (6.3-8.2)
[2024-03-29] MEDS: PANTOPRAZOLE 40 MG TABLET PO SCH (09:33)
[2024-03-29] MEDS: FLUOXETINE 20 MG/5 ML PO SCH ×2 (09:34→20:49)
[2024-03-29] MEDS: HALOPERIDOL LACTATE 5 MG/ML 1 ML VIAL IM STA (13:09)
--- NOTE | 2024-03-29 13:09 | P.PN ---
Progress Note - Text Progress Note Date: 03/29/24 Interval history: Patient was seen isolating to her room and laying in her bed in the dark. She is initially passively engaged in assessment, reports she is has nausea, has taken zofran and reglan but claims this has not been helping. She asks when she can be discharged, and on telling her there are no current discharge plans for her for today or over the weekend, she becomes increasingly distressed, says she can't stay here that long because she doesn't feel safe here and worries about how her parents will cope at home without her there. Patient was difficult to de- escalate and so Haldol 2 mg IM x 1 was ordered for agitation/anxiety/nausea. Her insight into her anxiety and impulsiveness is poor. At this time patient denies any suicidal or homicidal ideation, intent or plan. Denies any auditory or visual hallucinations. Patient denies any side effects from the medications. Patient was upset with decision to not discharge her today and so she signed a 72-hour AMA notice. Mental status exam: General Appearance: Patient appears to be stated age, obese, dressed in nightgown, fair hygiene/grooming. Behavior: Patient becomes increasingly distressed and agitated when told there is no discharge plan today. Speech: Patient's speech is fluent. loud at times and non-pressured. Mood/Affect: Mood is very anxious, affect is congruent and constricted. Suicidality/Homicidality: Patient denies having any suicidal or homicidal ideation intent or plan. Perceptions: Patient denies any auditory or visual hallucinations. Though content/process: There is no evidence of overt fixed delusional thought content. Thought process if perseverative and argumentative. Memory and concentration: AOX3, grossly intact for the purposes of this session Judgment and insight: poor Assessment/Plan: Continue with current diagnosis. Patient continues to meet criteria for in patient psychiatric admission for symptom stabilization and safety. Haldol 2 mg IM x1 given for agitation/anxiety/nausea. Increase Prozac oral solution to 5 mg BID for anxiety/mood. Monitor for medication compliance and for any psychotropic medication side effects. Will continue to monitor ongoing response to treatment. Encouraged participation in milieu.
[2024-03-29] MEDS ORDERED: HALOPERIDOL LACTATE 5 MG/ML 1 ML VIAL IM PRN (15:38)
[2024-03-29 16:29] LABS: T4, Free (Free Thyroxine) 1.73 ng/dL (0.78-2.19)
--- NOTE | 2024-03-30 16:23 | P.PN ---
Progress Note - Text Progress Note Date: 03/30/24 Interval history: Patient was seen isolating to her room again today and laying in her bed in the dark. She is passively engaged in assessment, reports she has nausea again today. A noticeable improvement in her thought process, irritability and nausea was observed yesterday after she received Haldol 2 mg IM x 1 around mid-day. We discussed adding oral Haldol to her medication regime and she agrees. At this time patient denies any suicidal or homicidal ideation, intent or plan. Denies any auditory or visual hallucinations. Patient denies any side effects from the medications. Patient tends to minimize her depression and anxiety symptoms, argues she does not need the fluoxetine for her anxiety and refuses a dose increase to 10 mg BID. She is not very receptive to psychoeducation. Mental status exam: General Appearance: Patient appears to be stated age, obese, dressed in nightgown, fair hygiene/grooming. Behavior: Laying in bed, withdrawn, antagonistic Speech: Patient's speech is fluent, soft and non-pressured. Mood/Affect: Mood is "as good as could be expected", affect is depressed and constricted. Suicidality/Homicidality: Patient denies having any suicidal or homicidal ideation intent or plan. Perceptions: Patient denies any auditory or visual hallucinations. Though content/process: There is no evidence of overt fixed delusional thought content. Thought process is antagonistic. Memory and concentration: AOX3, grossly intact for the purposes of this session Judgment and insight: poor Assessment/Plan: Continue with current diagnosis. Patient continues to meet criteria for inpatient psychiatric admission for symptom stabilization and safety. Start Haldol 2 mg BID (0900, 1800) for agitation/mood/nausea. Continue Prozac oral solution 5 mg BID for anxiety/mood. She refuses a dose increase to 10 mg BID. Monitor for medication compliance and for any psychotropic medication side effects. Will continue to monitor ongoing response to treatment. Encouraged participation in milieu.
[2024-03-31] MEDS: DICYCLOMINE 10 MG CAP PO PRN (12:14)
[2024-03-31] MEDS: hydrOXYzine HCL 25 MG TAB PO PRN (12:33)
--- NOTE | 2024-03-31 13:00 | P.PN ---
Progress Note - Text Progress Note Date: 03/31/24 - Chief Complaint Depressed - History of Present Illness This is a 28-year-old patient, follows with Dr. Ary Martins. Longstanding history of depression. She is also on medical issues. She has had deep pelvic pain. 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 She is also seen a pelvic mastic floor layer. Has been diagnosed endometriosis. Surgery type unknown has been scheduled for next month. She also has episodes of vomiting. Has seen Dr. El Villalobos/AMBULANCE DISPATCHER in the office. Used to vomits several times a week. Diagnosis not known. When she started taking marijuana Gummies with some help. Now down to 4 or 5 times a month. In the last 3 days patient again started vomiting. Really did not want to come down to the ER. And became stressed about it. Patient was specialization and sent down to the hospital. Patient also has irregular bowel pattern. Sometimes constipation sometimes loose stools. Does not sleep too well. Patient oftentimes will have liquids. March 31, 2024: Patient been up and about in the hallways. Eating some. Nurse informed me that patient was noted to be forcing house to vomit. For muscle spasms Bentyl was added. While I was started the patient she had a panic attack. Told the patient to take some deep breaths. It resolved. Active Medications Acetaminophen (Acetaminophen Tab 325 Mg Tab) 650 mg PO Q4HR PRN PRN Reason: Mild Pain (Scale 1 to 3) Last Admin: 03/31/24 05:54 Dose: 650 mg Al Hydroxide/Mg Hydroxide (Mag Hydrox/Al Hydrox/Simeth 355 Ml Bottle) 30 ml PO Q4HR PRN PRN Reason: GI Upset Calcium Carbonate/Glycine (Calcium Carbonate 500 Mg Chewable) 1,000 mg PO QID COUNT INCLUDES THE [facility] Last Admin: 03/31/24 11:48 Dose: Not Given Dicyclomine HCl (Dicyclomine 10 Mg Cap) 10 mg PO Q8HR PRN PRN Reason: GI Upset Last Admin: 03/31/24 12:14 Dose: 10 mg Fluoxetine HCl (Fluoxetine Oral Soln 20 Mg/5 Ml Bottle) 5 mg PO BID COUNT INCLUDES THE [facility] Last Admin: 03/31/24 08:26 Dose: 5 mg Haloperidol (Haloperidol 2 Mg Tab) 2 mg PO 0900,1800 COUNT INCLUDES THE [facility] Last Admin: 03/31/24 08:26 Dose: 2 mg Haloperidol Lactate (Haloperidol Lactate 5 Mg/Ml 1 Ml Vial) 2 mg IM Q6HR PRN PRN Reason: Agitation or Acute Psychosis Hydroxyzine HCl (Hydroxyzine Hcl 25 Mg Tab) 25 mg PO TID PRN PRN Reason: Anxiety Last Admin: 03/31/24 12:33 Dose: 25 mg Hydroxyzine HCl (Hydroxyzine Hcl 50 Mg/Ml 1 Ml Vial) 25 mg IM TID PRN PRN Reason: Severe Anxiety Ibuprofen (Ibuprofen 600 Mg Tab) 600 mg PO Q6HR PRN PRN Reason: Moderate Pain (Scale 4 to 6) Last Admin: 03/31/24 11:01 Dose: 600 mg Magnesium Hydroxide (Magnesium Hydroxide 2,400 Mg/30 Ml Cup) 2,400 mg PO DAILY PRN PRN Reason: Constipation Metoclopramide HCl (Metoclopramide 10 Mg Tab) 10 mg PO Q6H PRN PRN Reason: Nausea And Vomiting Last Admin: 03/28/24 23:42 Dose: 10 mg Ondansetron HCl (Ondansetron Odt 4 Mg Tab) 8 mg PO Q8HR PRN PRN Reason: Nausea Last Admin: 03/31/24 05:53 Dose: 8 mg Pantoprazole Sodium (Pantoprazole 40 Mg Tablet) 40 mg PO AC-BRKFST YOEL Last Admin: 03/31/24 08:34 Dose: Not Given Social history: Patient lives with her parents. Not employed. Does marijuana Gummies for nausea vomiting. Physical examination: VITAL SIGNS: 97.3, 100, 20, 129 x 91, 98% room air GENERAL: See complete chair to bed anxious appearing EYES: Pupils equal. Conjunctiva mamie l. HEENT: External appearance of nose and ears normal, oral cavity grossly normal. NECK: JVD not raised; masses not palpable. HEART: First and second heart sounds are normal; no edema. LUNGS: Respiratory rate normal; clear to auscultation. ABDOMEN: Soft, nontender, liver spleen not palpable, no masses palpable. PSYCH: [Alert and oriented x3; mood and affect, anxious MUSCULOSKELETAL:No Clubbing/cyanosis;muscles-grossly intact INVESTIGATIONS, reviewed in the clinical context: March 29: White count 10.7 hemoglobin 14.5 platelets 239 potassium 3.5 creatinine 0.89 bilirubin 1.5 UA: Squamous cell 17. Urine drug screen: Benzodiazepine, marijuana detected: Assessment and plan: -Endometriosis. Patient has been seen by 2 framing mill supervisor. 1 pelvic mastic floor layer. Patient is due for surgical intervention next month. Exact type unknown -Insomnia secondary to depression and anxiety Hopefully will do better with change in psychiatry medications -GERD Tums. Stop Motrin. Protonix -Possible gastric spasms Bentyl as needed's -Morbid obesity. BMI 40.4 Weight loss measures -Psychiatry issues Being followed by psychiatry Discussed with patient. Patient to keep her outpatient appointments with PCP. Past Medical History Past Medical History: Seizure Disorder Additional Past Medical History / Comment(s): Asbergers Syndrome; sleep apnea. Endometriosis History of Any Multi-Drug Resistant Organisms: None Reported Past Surgical History: No Surgical Hx Reported Past Anesthesia/Blood Transfusion Reactions: No Reported Reaction Smoking Status: Never smoker
--- NOTE | 2024-03-31 18:29 | P.PN ---
Progress Note - Text Progress Note Date: 03/31/24 Interval history: Patient was seen near the dining area hear meal time and was passively engaged in assessment. At this time patient denies any suicidal or homicidal ideation, intent or plan. Denies any auditory or visual hallucinations. Patient denies any side effects from the medications. She tends to be somewhat dismissive and not receptive to psychoeducation. She is discharge focused. Mental status exam: General Appearance: Patient appears to be stated age, obese, dressed in nightgown, fair hygiene/grooming. Behavior: Standing, attempts to cooperate but is somewhat antagonistic Speech: Patient's speech is fluent and non-pressured. Mood/Affect: Mood is "fine", affect is congruent and constricted. Suicidality/Homicidality: Patient denies having any suicidal or homicidal ideation intent or plan. Perceptions: Patient denies any auditory or visual hallucinations. Though content/process: There is no evidence of overt fixed delusional thought content. Thought process is generally linear. Memory and concentration: AOX3, grossly intact for the purposes of this session Judgment and insight: improving mildly Assessment/Plan: Continue with current diagnosis. Patient continues to meet criteria for inpatient psychiatric admission for symptom stabilization and safety. She signed AMA letter on 03/29 which expires on 04/03. Continue Haldol 2 mg BID (0900, 1800) for agitation/mood/nausea. Continue Prozac oral solution 5 mg BID for anxiety/mood. She refuses a dose increase to 10 mg BID. Monitor for medication compliance and for any psychotropic medication side effects. Will continue to monitor ongoing response to treatment. Encouraged participation in milieu.
--- NOTE | 2024-04-01 11:59 | P.PN ---
Progress Note - Text Progress Note Date: 04/01/24 Interval history: Patient was seen sitting in the TV lounge and was agreeable to speak with this creative writer. At this time patient denies any suicidal or homicidal ideation, intent or plan. Denies any auditory or visual hallucinations. Patient denies any side effects from the medications. She tends to be somewhat dismissive and antagonistic in her responses at baseline. She claims "I'm fine and I felt fine when I got here." Insight is fair. She is discharge focused. Mental status exam: General Appearance: Patient appears to be stated age, obese, dressed in nightgown, fair hygiene/grooming. Behavior: Standing, attempts to cooperate but is somewhat antagonistic Speech: Patient's speech is fluent and non-pressured. Mood/Affect: Mood is "fine", affect is congruent and constricted. Suicidality/Homicidality: Patient denies having any suicidal or homicidal ideation intent or plan. Perceptions: Patient denies any auditory or visual hallucinations. Though content/process: There is no evidence of overt fixed delusional thought content. Thought process is generally linear. Memory and concentration: AOX3, grossly intact for the purposes of this session Judgment and insight: improving mildly Assessment/Plan: Continue with current diagnosis. Patient continues to meet criteria for inpatient psychiatric admission for symptom stabilization and safety. She signed AMA letter on 03/29 which expires on 04/03. Continue Haldol 2 mg BID (0900, 1800) for agitation/mood/nausea. Continue Prozac oral solution 5 mg BID for anxiety/mood. She refuses a dose increase to 10 mg BID. Monitor for medication compliance and for any psychotropic medication side effects. Will continue to monitor ongoing response to treatment. Encouraged participation in milieu. Consider discharge tomorrow if continues to stabilize.
[2024-04-01 13:39] LABS: Glucose,Whole Blood 134 mg/dL (70-110)
[2024-04-02 07:51] VITALS: PULSE 98
--- NOTE | 2024-04-02 14:54 | P.PN ---
Progress Note - Text Progress Note Date: 04/02/24 Follow-up Mediation Review Chief Complaint: I am feeling good Subjective: The patient noted that she is feeling good. The patient has a severe anxiety spell with nausea over the weekend. She was given Haldol 2 mg IM prn and Haldol 2mg po bid was added to her treatment. The patient noted that she took Haldol for nausea. The patient was explained that she has been placed on Haldol 2 mg twice a day for agitation and anxiety by the covering physician. The patient was explained that this medication has potential side effects and should not be taken on a regular basis for nausea. Suggested patient to discontinue this medication and observe her symptoms without the Haldol. The patient agreed reluctantly. The patient had given history of hallucinations at the time of admission. The patient has been attending the groups. The participation is good. The interaction with staff and peers is good. The patient is compliant with treatment recommendations. Leading questions: The patient denied Depression and Anxiety. Denied SI or HI. Denied symptoms consistent with psychosis Sleep and Appetite: Fine. Change in family/ living/job/financial/daily routine: No change. Change in medical condition: No change. Change in medications: No change. Side effects from Medications: None. Objective- MSE: Alert and attentive. Orientation times three. Dressed and Groomed: Appropriately. Pleasant and cooperative. Psychomotor Activity: Normal. Speech: Normal in tone, quality, and quantity. Mood: Upset. Affect: Appropriate. SI or HI: None. Perceptual disturbance: None. Thought Content: No paranoia or other delusional thinking noted. Thought Process: Normal. Cognition: Intact Judgment and Insight: Fair. AIMS: Normal. Labs: No new labs. Diagnosis: Plan and Recommendations: Continue current Medications. Monitor MS and side effects of medications and adj ust medications accordingly. Provide supportive psychotherapy. The patient provided psychoeducation and advised The patient to attend houser activities. Medication Consent with explanation of risk/benefits and side effects: Explained and obtained.
[2024-04-03 07:14] VITALS: BP 138/75; RESP 16; TEMP 97
--- NOTE | 2024-04-03 16:36 | P.DS ---
Providers Date of admission: 03/28/24 00:09 Expected date of discharge: 04/03/24 Attending physician: Demetrius Bashir MD Consults: 03/28/24 00:20 Consult Physician Routine Consulting Provider: Clyde Chappell Consult Reason/Comments: medical management Do you want consulting provider notified?: Yes, Notify in am Primary care physician: Ary Martins - Discharge Diagnosis(es) (1) Major depressive disorder, recurrent severe without psychotic features Status: Acute Priority: High (2) Borderline personality disorder Status: Acute Priority: Medium Hospital Course: Discharge Summary HPI: Identifying Data: Ms. Castro, is a 29 years old, single W. female, who lives in [place], [place] with her parents. Chief Complaint: I burnt myself out of frustration and anger not due to depression. History of Psychiatric Illness- The patient noted that she burnt her foot due to severe pain and feeling overwhelmed with her upcoming surgery for Endometrioses in mid-April,. She stated, depression was not the catalyst for this act. She stated, I was not suicidal. The patient noted that she is not feeling depressed at this time. She has been prescribed Li but she is not taking it. She states that she cannot hold it. Her blood levels were very low. Her depressive symptomatology consists of feeling sad, loss of motivation, loss of interest, anxiety, feelings of worthlessness, hopelessness, and suicidal ideations. The patient is on Sparvato for depression. She will take her next treatment after discharge. The patient noted that she has suffered from depression since age 17. She has had 4 admissions since then. Her two admissions were for depression with suicidal thoughts and two for self-harm without suicidal ideations or thoughts. She gets her out-pt treatment at [facility]. Past Psychiatric History: As stated above. Leading questions: The patient admitted to Depression and Anxiety. Denied SI or HI. Denied symptoms consistent with psychosis Drugs and alcohol history: Denied Tobacco use: Denied Hospital Course: After admission, the patient was involved in pharmacotherapy, houser milieu, and individual psychodynamic psychotherapy. The patient was started on Prozac 10 mg po solution twice a day. The dose was titrated to obtain the desire effects. The Haldol 2 mg po bid was added to her treatment for anxiety and agitation on a regular basis but was discontinued before discharge. The patient tolerated medications well without any side effects. The patient was also involved in houser activities. The patient attended the groups and participated well. The patient interacted with peers and staff well. The patient slowly started showing improvement. The hospital course was uneventful. The patient symptoms of depression, suicidal and homicidal ideations abated. The psychosis improved. The patient was stable to be discharged to out-patient care. The patient did not have any guns or weapons in possession at home. MSE: Alert and attentive. Orientation times three Dressed and Groomed: Appropriately. Pleasant and cooperative. Psychomotor Activity: Normal. Speech: Normal in tone, quality, and quantity. Mood: frustrated and angry. Affect: Appropriate to the mood. SI or HI: None. Perceptual disturbance: None. Thought Content: No paranoia or other delusional thinking noted. Thought Process: Normal. Cognition: Intact Judgment and Insight: Good AIMS: Normal Diagnosis: Major Depressive Disorder recurrent, severe without psychotic features. Borderline Personality Disorder Plan: The patient to be discharged today. The patient has attained good improvement since admission. He is stable to be followed as an outpatient. The patient is not suicidal or Homicidal. He does not pose any harm to self or others. The patient remains at a greater risk of self-harm or harm to others than general population on a chronic basis due to psychiatric illness and substance abuse. The patient will continue taking following medication post discharge. The importance of medication compliance and maintaining regular appointments at psychiatric out-pt and PCP clinic was explained and encouraged. The patient was also advised to seek alcohol counseling and attend AA/NA meetings. The understood and agreed with the recommendations. packing floor worker to arrange for and conduct family meeting to ensure safety upon discharge and answer any questions. The medical social consultant to arrange for patients follow-up appointments at [facility] for psychiatric care along with follow-up with PCP. The patient provided psychoeducation. Advised to call 911 or go to nearest ED or call this hospital in case of acute worsening of symptomatology, severe side effects or having suicidal, homicidal thoughts and feeling unsafe at home. Patient Condition at Discharge: Stable Plan - Discharge Summary Discharge Rx Participant: No New Discharge Prescriptions: New FLUoxetine ORAL SOLN [PROzac ORAL SOLN] 5 mg PO BID 15 Days #30 ml Continue Spravato 84mg 3 spray EA NOSTRIL Q14D Famotidine [Pepcid] 20 mg PO BID PRN PRN Reason: ACID REFLUX Toone Carbonate 1,200 mg PO HS Medroxyprogesterone Acetate [Depo-Provera] 150 mg IM Q84D Ondansetron Odt [Zofran ODT] 8 mg PO Q8HR PRN PRN Reason: Nausea Discontinued Diphenoxylate HCl/Atropine [Lomotil 2.5-0.025 mg Tablet] 2 tab PO TID PRN PRN Reason: Diarrhea Venlafaxine HCl [Effexor XR] 150 mg PO DAILY 30 Days tab ALPRAZolam [Xanax] 1 mg PO BID PRN PRN Reason: Anxiety Haloperidol Lactate 1 mg IM DIRECTED PRN PRN Reason: ACUTE PSYCHOSIS AFTER SPRAVATO Metoclopramide [Reglan] 10 mg PO Q6H PRN #15 tab PRN Reason: Nausea And Vomiting Discharge Medication List Medroxyprogesterone Acetate [Depo-Provera] 150 mg IM Q84D 09/02/21 [History] Spravato 84mg 3 spray EA NOSTRIL Q14D 09/02/21 [History] Famotidine [Pepcid] 20 mg PO BID PRN 03/28/23 [History] Toone Carbonate 1,200 mg PO HS 03/28/23 [History] Ondansetron Odt [Zofran ODT] 8 mg PO Q8HR PRN 03/28/23 [History] FLUoxetine ORAL SOLN [PROzac ORAL SOLN] 5 mg PO BID 15 Days #30 ml 04/03/24 [Rx] Follow up Appointment(s)/Referral(s): [facility] [Outside] - 04/09/24 1:00 pm (Alyce puri 04-09-24 @ 1pm at the [place] Office -Christina Kennedy (Prescriber) 04-12-24 @ 2:30pm.) Ary Martins DO [Primary Care Provider] - 1-2 days Patient Instructions/Handouts: Depression (DC), Borderline Personality Disorder (DC) Activity/Diet/Wound Care/Special Instructions: Avoid the use of street drugs and alcohol. Take all medications as prescribed. When you are in need of refills on your medications, please contact your medical provider and/or outpatient psychiatrist/provider to have this done. Please go to your scheduled outpatient appointment for aftercare treatment. If symptoms return or become worse, call the crisis line at and/or go to the nearest emergency room for evaluation. National Suicide Hotline 988 Discharge Disposition: HOME SELF-CARE
== END 2024-04-03 09:17 | disposition home or self-care (01) | DRG 880 ==
LOC: EC 19:35 → 3MHU 03-28 00:09
PROVIDERS: ADMIT Psychiatry & Neurology Psychiatry; ATTEND Psychiatry & Neurology Psychiatry
DX: F99 Mental disorder, not otherwise specified (principal); F33.2 Major depressive disorder, recurrent severe without psychotic features; R45.851 Suicidal ideations; Z68.41 Body mass index [BMI] 40.0-44.9, adult; E66.01 Morbid (severe) obesity due to excess calories; F41.9 Anxiety disorder, unspecified; R45.1 Restlessness and agitation; F41.0 Panic disorder [episodic paroxysmal anxiety]; F43.10 Post-traumatic stress disorder, unspecified; F60.3 Borderline personality disorder; G40.909 Epilepsy, unspecified, not intractable, without status epilepticus; K21.9 Gastro-esophageal reflux disease without esophagitis; K59.00 Constipation, unspecified; N80.9 Endometriosis, unspecified; Z79.899 Other long term (current) drug therapy; G47.00 Insomnia, unspecified; Z28.21 Immunization not carried out because of patient refusal; Z88.8 Allergy status to other drugs, medicaments and biological substances
CPT/HCPCS: 80053; 80061; 80306; 81001; 81025; 82075; 83036; 84439; 84443; 85025; 87635; 93005; 99285

== ENCOUNTER → 2024-05-02 | Outpatient (CLI) | payer MEDICARE, OTHER ==
--- NOTE | 2024-05-02 13:05 | NM ---
EXAMINATION TYPE: NM gastric emptying static DATE OF EXAM: 05/02/2024 COMPARISON: NONE CLINICAL INDICATION: Female, 29 years old with history of R11.2 NAUSEA WITH VOMITING, UNSPECIFIED; Following administration of 1.97 mCi Tc 99m Sulfur Colloid with 4 ounces of eggs, 2 pieces of toast w ith butter, 4 ounces of water, projection images of the abdomen were obtained 10 minutes post ingesti on. Patient Emptying Values 1 Hour 38 % 2 Hours 67 % 3 Hours 86 % 4 Hours 94 % Gastro-esophagel reflux: None IMPRESSION: Gastric emptying: Within Normal limits Gastroesophageal reflux: None Gastric emptying normal percentage values: 30 minutes: <70% of retention (> 30% emptying) suggests abnormally fast emptying. 60 minutes: <90% retention (>10% emptying) is normal; less than 30% retention (>70% emptying) suggest s abnormally rapid empying. 90 minutes: <65% retention (> 35% emptying) is normal. 120 minutes: <60% retention (> 40% emptying) is normal. 180 minutes: <30% retention (> 70% emptying) is normal. Gastric emptying T-1/2: Solid: The normal range is 60-105 minutes Liquid only: Normal range is 10-45 minutes. Liquid only-children: At 60 minutes, normal range is 44-58 % . Liquid only-infants: At 60 minutes, normal range is 32-64 %. Additional references: Gastric Emptying Scintigraphy http://bit.[email or web address]/[email or web address]
== END | disposition home or self-care (01) ==
LOC: RADNMMAIN 06:38
PROVIDERS: ATTEND Internal Medicine Gastroenterology
DX: R11.2 Nausea with vomiting, unspecified (principal)
CPT/HCPCS: 78264; A9541

== ENCOUNTER → 2025-04-16 | Outpatient (CLI) | payer MEDICARE ==
[2025-04-16 15:26] VITALS: BP 133/87; PULSE 93; RESP 16; TEMP 98.7; BMI 44.8
--- NOTE | 2025-04-16 16:24 | P.HPBAR ---
Bariatric H&P - History & Physicial H&P Date: 04/16/25 History & Physicial: Visit/CC: Initial Visit Patient initial contact: Initial weight: 129.784 kg Initial weight in pounds: 286.13 Height: 5 ft 7 in Initial BMI: 44.8 Last weight: Current weight: 129.784 kg Current weight in pounds: 286.13 Current BMI: 44.8 [place] body weight (based on NIH guidelines): 61.36 kg Excess body weight loss: 0.0% The patient is a 30 year-old F who presents for Bariatric Assessment. She comes in high 286 pounds. She has food journal with [employer]. Needs labs, EGD, family with morbid obesity. Cheese. She is drinking too much soda. Diet is 80 to 90% carb. Plan to shift to 40%. Needs to stop sweets. Mom is withe her. Past Medical History Past Medical History: Seizure Disorder Additional Past Medical History / Comment(s): Asbergers Syndrome; sleep apnea History of Any Multi-Drug Resistant Organisms: None Reported Past Surgical History: No Surgical Hx Reported Past Anesthesia/Blood Transfusion Reactions: No Reported Reaction Past Psychological History: Anxiety, Depression, PTSD Smoking Status: Never smoker Past Alcohol Use History: None Reported Additional Past Alcohol Use History / Comment(s): Patient states that she is a nonsmoker. She denies any medical marijuana, marijuana, street drug use. She denies any alcohol use. Patient lives at home with her periods and is currently going to [facility]. She does not have any children. Past Drug Use History: None Reported - Past Family History Father Family Medical History: Cancer, CVA/TIA, Myocardial Infarction ([place]) Additional Family Medical History / Comment(s): Father is age 58 and has unknown breast tumor Mother Family Medical History: Diabetes Mellitus Additional Family Medical History / Comment(s): Mother is alive at age 56. Patient has 2 sisters that are well by no and blind. She does not have any brothers. Surgical - Exam Vital Signs Temp Pulse Resp BP 98.7 F 93 16 133/87 04/16/25 15:15 04/16/25 15:15 04/16/25 15:15 04/16/25 15:15 Bariatric Checklist Checklist: Plan: Checklist: EGD: 1. Hiatal hernia: 2. H. Pylori: HgbA1c: Vitamin D: Smoking: Never smoker Primary care physician referral: Ary Martins Psychiatry clearance: Cardiology clearance: Sleep study: Diet journal: VTE risk score: VTE risk level: Rehab needs at discharge:
== END ==
LOC: BARWHC3 14:43
PROVIDERS: ATTEND Surgery Plastic and Reconstructive Surgery
DX: E66.01 Morbid (severe) obesity due to excess calories (principal); F12.90 Cannabis use, unspecified, uncomplicated; Z88.8 Allergy status to other drugs, medicaments and biological substances; Z68.41 Body mass index [BMI] 40.0-44.9, adult
CPT/HCPCS: 99202

== ENCOUNTER → 2025-04-23 | Outpatient (CLI) | payer MEDICARE ==
[2025-04-23 14:30] LABS: Partial Thromboplastin Time 26.6 sec (22.0-30.0); Prothrombin Time 10.7 sec (10.0-12.5)
[2025-04-23 18:14] LABS: HCT 46.5 % (37.2-46.3); HGB 16.2 g/dL (12.0-15.0); MCHC 34.8 g/dL (32.0-37.0); MCV 88.9 FL (80.0-97.0); Mean Platelet Volume 8.8 FL (9.5-12.2); NRBC Per 100 WBC 0 X 10*3/uL (0.00-0.01); Platelet Count 301 X 10*3/uL (140-440); RBC 5.23 X 10*6/uL (4.10-5.20); RDW 12.2 % (11.5-14.5); WBC 10.83 X 10*3/uL (4.50-10.00)
[2025-04-23 20:29] LABS: % Iron Saturation 19.66 (12.00-45.00); ALT 34 U/L (8-44); AST 21 U/L (13-35); Albumin 4.6 g/dL (3.8-4.9); Albumin/Globulin Ratio 2.09 Ratio (1.60-3.17); Alkaline Phosphatase 75 U/L (41-126); Blood Urea Nitrogen 13.2 mg/dL (9.0-27.0); Calcium 9.5 mg/dL (8.7-10.3); Carbon Dioxide 17.9 mmol/L (21.6-31.8); Chloride 107 mmol/L (96-109); Chol/HDL Ratio 5.41 Ratio; Globulin 2.2 g/dL (1.6-3.3); Glucose 96 mg/dL (70-110); Iron 80 UG/DL (50-170); LDL Cholesterol,Calculated 125.8 mg/dL (0.0-131.0); Magnesium 2.3 mg/dL (1.5-2.4); Phosphorus 3.2 mg/dL (2.4-5.1); Potassium 3.9 mmol/L (3.5-5.5); Sodium 140 mmol/L (135-145); Total Bilirubin 0.5 mg/dL (0.3-1.2); Total Iron Binding Capacity 407 UG/DL (228-460); Total Protein 6.8 g/dL (6.2-8.2)
[2025-04-23 21:33] LABS: Prealbumin 28.7 mg/dL (18.0-42.0)
[2025-04-24 10:30] LABS: Zinc, Serum 87 ug/dL (60-130)
[2025-04-25 05:58] LABS: Vitamin A 50 ug/dL (38-106)
[2025-04-25 06:12] LABS: Vit B1(Thiamine) 74 ug/L (38-122)
== END | disposition home or self-care (01) ==
LOC: LABWHC1 13:46
PROVIDERS: ATTEND Surgery Plastic and Reconstructive Surgery
DX: E89.1 Postprocedural hypoinsulinemia (principal); Z79.899 Other long term (current) drug therapy; E66.01 Morbid (severe) obesity due to excess calories; D50.8 Other iron deficiency anemias; E44.0 Moderate protein-calorie malnutrition; E45 Retarded development following protein-calorie malnutrition; K74.1 Hepatic sclerosis; E55.9 Vitamin D deficiency, unspecified; N19 Unspecified kidney failure; T56.894A Toxic effect of other metals, undetermined, initial encounter; K50.90 Crohn's disease, unspecified, without complications; K91.2 Postsurgical malabsorption, not elsewhere classified
CPT/HCPCS: 84255; 84134; 84425; 80061; 80053; 82607; 82728; 82525; 82746; 83540; 83550; 83735; 84100; 84443; 84590; 84630; 85027; 85610; 85730; 82306; 83970; 83036; 80307; 93005; 36415; G0480; 80323